=== PATIENT | female | born 1940 | race Caucasian/White ===

== ENCOUNTER 2017-02-06 09:38 | Emergency (ER) | payer OTHER ==
[2017-02-06] MEDS ORDERED: AMPICILLIN/SULBACTAM 3 GM/10 ML VIAL ONE ×2 (10:47→17:54)
[2017-02-06] MEDS ORDERED: NORMAL SALINE 100 ML IV ONE ×2 (10:48→17:58)
[2017-02-06] MEDS ORDERED: WATER FOR INJECTION 10 ML ONE ×2 (10:50→17:54)
--- NOTE | 2017-02-06 11:32 | ER NURSING DOCUMENTATION ---
Nurse's Notes [facility] Name:Carleen Allen Age:76 yrs Sex:Female :1940 Arrival Date:02/06/2017 Time:09:38 Bed1 Private MD: Diagnosis:Cellulitis of Hand-: Left;Cat Bite Presentation: 02/06 09:59 Notified ED Physician of patient's arrival and CC Dr. Lin notified. cb 10:02 Presenting complaint: Patient states: cat bite. Transition of care: Home. cb 10:02 Method Of Arrival: Private Vehicle cb 10: Acuity: SASHA 3 cb Triage Assessment: 10:07 Bite description: bite sustained to dorsum of left hand by a cat, animal information: cb vaccination(s) is current, bite by own cat yesterday. Cat is UTD on his shots. Compartment Syndrome symptoms: Unable to determine. General: Appears in no apparent distress, well groomed, Behavior is cooperative. Pain: Complains of pain in dorsum of left hand Pain currently is 6 out of 10 on a pain scale. Quality of pain is described as aching. EENT: No deficits noted. Neuro: Level of Consciousness is awake, alert, Oriented to person, place, time, event. Cardiovascular: Pulses are 2+ in left radial artery. Respiratory: Airway is patent Trachea midline Respiratory effort is even, unlabored, Respiratory pattern is regular, symmetrical. GI: Reports tolerance of fluids, tolerance of food. : No deficits noted. Derm: Skin skin swollen and red with two puncture wounds. Musculoskeletal: No deficits noted. Injury Description: Bite sustained to dorsum of left hand caused by a cat, is from animal, was sustained 1 day ago. Historical: - Allergies: No known drug Allergies; - Home Meds: 1. Atenolol Oral 2. Synthroid Oral - PMHx: HYPERTENSION; HYPOTHYROIDISM; - PSHx: Tonsillectomy; Hysterectomy; - Tetanus: < 10 years. - Ebola Screening: : Patient negative for fever greater than or equal to 101.5 degrees Fahrenheit, and additional compatible Ebola Virus Disease symptoms. Patient denies exposure to infectious person. Patient denies travel to an Ebola-affected area in the 21 days before illness onset. No symptoms or risks identified at this time. . - Immunization history: Flu Vaccine < 1 year. - Social history: Smoking status: Patient states was never smoker of tobacco. Screenin:23 Infectious Disease Risk None. Abuse screen: Denies threats or abuse. Denies injuries cb from another. Nutritional screening: No deficits noted. Assessment: 11:30 Derm: Skin is pink, Skin temperature is warm Reports cat bite yesterday. cb Vital Signs: 10:06 BP 136 / 68; Pulse 70; Resp 18; Temp 97.2(TE); Pulse Ox 94% on R/A; Weight 52.16 kg; cb Height 5 ft. 0 in. (152.40 cm); Pain 6/10; 11:30 Pulse 74; Pulse Ox 99% on R/A; cb 10:06 Body Mass Index 22.46 (52.16 kg, 152.40 cm) cb ED Course: 09:40 Patient arrived in ED. lr3 10:02 Justine Landon, FAUSTO is Primary Nurse. cb 10:03 Triage completed. cb 10:15 Wound care to cat bite located on dorsum of left hand was cleaned with Hibiclens. cb 10:19 Casey Lin MD is Attending Physician. cd 10:23 Valuables Remains with patient Patient has correct armband on for positive cb identification. Bed in low position. Call light in reach. Adult w/ patient. 10:30 Inserted peripheral IV: 20 gauge in right antecubital area. cb 10:45 Diet: Patient given juice. cb 11:25 Wound care to cat bite located on left hand was dressed with 4X4s, Kerlix, Patient cb tolerated well. Administered Medications: 10:43 Drug: Unasyn 3 grams; Route: IVPB; Site: right antecubital; cb 11:25 Follow up: Response: No adverse reaction; IV Status: Completed infusion; IV Intake: cb 100ml Intake: 11:25 IV: 100ml; Total: 100ml. cb Outcome: 10:22 Discharge ordered by . cd 11:30 Discharged to home ambulatory, with friend. cb 11:30 Condition: stable 11:30 Discharge instructions given to patient, Instructed on discharge instructions, follow up and referral plans. Demonstrated understanding of instructions, medications, NSS lock left in plae and flushed wan wrapped with Diana 11:31 Patient left the ED. cb 02/07 08:07 Discharge F/U Call: Spoke with: patient. Did your discharge instructions answer all lp of your questions? yes What is the one thing you feel we could do to improve? Patient's answer: feeling better Further F/U necessary? None needed Signatures: Justine Landon RN RN cb Pavlish, Lena, RN RN lp Daley, Chris, MD MD cd Roach, Lelia lr3
--- NOTE | 2017-02-06 11:32 | ER PHYSICIAN DOCUMENTATION ---
Physician Documentation [facility] Name:Carleen Allen Age:76 yrs Sex:Female :1940 Arrival Date:02/06/2017 Time:09:38 Bed1 Private MD: Casey Lewis Disposition: 02/06/17 10:22 Discharged to Home/Self Care. Impression: Cellulitis of Hand - : Left, Cat Bite. - Condition is Good. - Discharge Instructions: ANIMAL BITE, General, CELLULITIS. - Medical Reconciliation form form. - Follow up: Emergency Department; When: at 5:30 PM. For recheck and possible IV antibiotics.; Reason: Recheck today's complaints, Continuance of care. - Problem is new. - Symptoms are unchanged. - Notes: Take Tylenol 325mg by mouth every 6 hours for pain. Elevate your hand above your heart all day today. Return to the ER for recheck and possible IV Antibiotics at 5:00 PM today. HPI: 02/06 09:45 This 76 yrs old Female presents to ER via Private Vehicle with complaints of cd Animal Bite. 09:45 The patient was bitten on the dorsum of left hand, by a cat, for an unknown reason, at home. Onset: The symptom(s)/episode began/occurred acutely, yesterday. Animal information: The animal was reported to appear healthy. Animal's vaccinations are up to date. The animal is known and can be quarantined. Infection risk factors: bite to the hand, The bite resulted in a deep puncture wound. Secondary to the bite the patient reports erythema, swelling, tenderness. Associated signs and symptoms: Pertinent positives: erythema at site, swelling at site, tenderness, Pertinent negatives: bony tenderness, fever, fluctuance, numbness distal to wound, no pain or limitation of tendon motion. Severity of symptoms: At their worst the symptoms were moderate, in the emergency department the symptoms are unchanged. Historical: - Allergies: No known drug Allergies; - Home Meds: 1. Atenolol Oral 2. Synthroid Oral - PMHx: HYPERTENSION; HYPOTHYROIDISM; - PSHx: Tonsillectomy; Hysterectomy; - Tetanus: < 10 years. - Ebola Screening: : Patient negative for fever greater than or equal to 101.5 degrees Fahrenheit, and additional compatible Ebola Virus Disease symptoms. Patient denies exposure to infectious person. Patient denies travel to an Ebola-affected area in the 21 days before illness onset. No symptoms or risks identified at this time. . - Immunization history: Flu Vaccine < 1 year. - Social history: Smoking status: Patient states was never smoker of tobacco. ROS: 10:10 Constitutional: Negative for chills, fever. cd 10:10 MS/extremity: Negative for decreased range of motion, tingling. 10:10 Skin: Positive for erythema, swelling, of the dorsum of left hand. 10:10 All other systems are negative. Exam: 10:10 Constitutional: The patient appears alert, awake, non-diaphoretic, non-toxic, anxious. cd 10:10 Musculoskeletal/extremity: ROM: no acute changes, Circulation is intact in all extremities. Sensation intact. Tendon exam: specific tendon testing normal through active and passive range of motion No signs of Tenosynovitis. 10:10 Skin: Appearance: normal except for affected area, cellulitis, that is moderate, confluent, injury, bite(s), deep, of the dorsum of left hand, puncture(s), that are deep. Vital Signs: 10:06 BP 136 / 68; Pulse 70; Resp 18; Temp 97.2(TE); Pulse Ox 94% on R/A; Weight 52.16 kg; cb Height 5 ft. 0 in. (152.40 cm); Pain 6/10; 11:30 Pulse 74; Pulse Ox 99% on R/A; cb 10:06 Body Mass Index 22.46 (52.16 kg, 152.40 cm) cb MDM: 09:45 Data interpreted: Pulse oximetry: on room air is 99 %. Interpretation: normal. cd 09:55 Differential diagnosis: tendon injury, cellulitis, P. multocida infection from Cat cd Bite. Infection risk factors: bite to the hand. Rabies Status: Rabies immunization is not indicated. 10:15 Data reviewed: vital signs, nurses notes, old medical records, and as a result, I will cd discharge patient, administer antibiotics Unasyn, and have the patient return every 6 hours for Unasyn 1.5 grams IVPB.. 10:15 Counseling: I had a detailed discussion with the patient and/or guardian regarding: the cd historical points, exam findings, and any diagnostic results supporting the discharge/admit diagnosis, the need for outpatient follow up, for a recheck, of today's symptoms, and IV Unasyn every 6 hours for three more doses. 10:19 Patient medically screened. cd 02/06 10:20 Order name: Iv Saline Lock; Complete Time: 10:34 cd Dispensed Medications: 10:43 Drug: Unasyn 3 grams; Route: IVPB; Site: right antecubital; cb 11:25 Follow up: Response: No adverse reaction; IV Status: Completed infusion; IV Intake: cb 100ml Signatures: Justine Landon RN RN Casey Pena MD MD cd
== END 2017-02-06 11:32 | disposition home or self-care (01) ==
LOC: ER 09:38
DX: S61.452A Open bite of left hand, initial encounter (principal); L03.114 Cellulitis of left upper limb; W55.01XA Bitten by cat, initial encounter; Y92.019 Unspecified place in single-family (private) house as the place of occurrence of the external cause; I10 Essential (primary) hypertension; Z79.899 Other long term (current) drug therapy
CPT/HCPCS: 96365; 99284; J0295

== ENCOUNTER 2017-02-06 17:24 | Emergency (ER) | payer OTHER ==
--- NOTE | 2017-02-06 18:45 | ER NURSING DOCUMENTATION ---
Nurse's Notes [facility] Name:Carleen Allen Age:76 yrs Sex:Female :1940 Arrival Date:02/06/2017 Time:17:24 Bed1 Private MD:Luiza Krishnan Diagnosis:Cellulitis of Hand;Animal Bite on Hand Presentation: 02/06 17:28 Presenting complaint: Patient states: I am back for a recheck of my cat bite. cb Transition of care: Home. 17:28 Method Of Arrival: Private Vehicle cb 17:28 Acuity: SASHA 4 cb Triage Assessment: 17:28 General: Appears in no apparent distress, well groomed, Behavior is cooperative. cb 17:28 Pain: Complains of pain in dorsum of left hand Pain currently is 3 out of 10 on a pain cb scale. EENT: No deficits noted. Neuro: Level of Consciousness is awake, alert, Oriented to person, place, time, event. Cardiovascular: Pulses are 2+ in left radial artery. Respiratory: Airway is patent Trachea midline Respiratory effort is even, unlabored, Respiratory pattern is regular, symmetrical. GI: Reports tolerance of fluids, tolerance of food. : No deficits noted. Derm: Skin cat bite to L hand , erythema has improved but fingers and knuckles are still swollen. Reports keeping hand elevated while @ home. Musculoskeletal: No deficits noted. Injury Description: Bite sustained to dorsum of left hand caused by a cat, is infected, was sustained 1 day ago. Historical: - Allergies: No known drug Allergies; - Home Meds: 1. Atenolol Oral 2. Synthroid Oral - PMHx: HYPERTENSION; HYPOTHYROIDISM; Cellulitis of Hand - : Left (February 06, 2017); Cat Bite (February 06, 2017); - PSHx: TONSILLECTOMY; HYSTERECTOMY; - Tetanus: < 10 years. - Ebola Screening: : Patient negative for fever greater than or equal to 101.5 degrees Fahrenheit, and additional compatible Ebola Virus Disease symptoms. Patient denies exposure to infectious person. Patient denies travel to an Ebola-affected area in the 21 days before illness onset. No symptoms or risks identified at this time. . - Immunization history: Flu Vaccine < 1 year. - Social history: Smoking status: Patient states was never smoker of tobacco. Screenin:23 Infectious Disease Risk None. Infectious Disease Risk None. Abuse screen: Denies cb threats or abuse. Denies injuries from another. Nutritional screening: No deficits noted. Vital Signs: 17:53 BP 126 / 69; Pulse 76; Resp 16; Temp 99.1; Pulse Ox 95% ; Weight 47.17 kg; Height 4 ft. cb 11 in. (149.86 cm); Pain 3/10; 05 12:25 BP 104 / 68; Pulse 82; Resp 16; Temp 98.3(O); Pulse Ox 95% on R/A; lp 02/06 17:53 Body Mass Index 21.01 (47.17 kg, 149.86 cm) cb ED Course: 02/06 17:28 Patient arrived in ED. ma1 17:28 Luiza Krishnan DO is Private Physician. md1 17:28 Justine Landon, FAUSTO is Primary Nurse. cb 17:29 Triage completed. cb 17:57 IV is intact, Flushed right saline lock. cb 18:23 Wound care to cat bite located on left hand was dressed with 4X4s, Kerlix, Patient cb tolerated well. 18:23 Valuables Remains with patient Patient has correct armband on for positive cb identification. Bed in low position. Call light in reach. Adult w/ patient. 18:25 Casey Lin MD is Attending Physician. cd 18:45 IV is intact, Flushed right saline lock wrapped with Diana. cb Administered Medications: 17:59 Drug: NS 0.9% 100 ml, Unasyn 1.5 grams; Route: IVPB; Site: right antecubital; cb 18:25 Follow up: IV Status: Completed infusion; IV Intake: 100ml cb 18:25 Follow up: Response: No adverse reaction cb Intake: 18:25 IV: 100ml; Total: 100ml. cb Outcome: 18:29 Discharge ordered by . cd 18:43 Discharged to home ambulatory. cb 18:43 Condition: stable 18:43 Discharge instructions given to patient, friend, Instructed on discharge instructions, follow up and referral plans. Demonstrated understanding of instructions, medications. 18:43 Recheck visit only Wound recheck 18:44 Patient left the ED. [facility] 02/07 08:25 Discharge F/U Call: Spoke with: patient. lp 08:25 Discharge F/U Call: Did your discharge instructions answer all of your questions? yes lp Have you made a f/u appointment? yes Overall Care on a scale of 1-10 with 10 being the best care, you rate our care as: the rating of 10. Signatures: Justine Landon, RN RN Alecia Taylor RN RN nh1 [place] RN RN lp Casey Lin MD MD cd Addison, Melissa [facility]
--- NOTE | 2017-02-06 18:45 | ER PHYSICIAN DOCUMENTATION ---
Physician Documentation [facility] Name:Carleen Allen Age:76 yrs Sex:Female :1940 Arrival Date:02/06/2017 Time:17:24 Bed1 Private MD:Luiza Krishnan ED, Chris Disposition: 02/06/17 18:29 Discharged to Home/Self Care. Impression: Cellulitis of Hand, Animal Bite on Hand. - Condition is Good. - Discharge Instructions: ANIMAL BITE, General, CELLULITIS. - Medical Reconciliation form form. - Follow up: Emergency Department; When: at 11:00 PM tonight....then 7:00 AM tomorrow morning; Reason: Recheck today's complaints, Continuance of care. - Problem is an ongoing problem. - Symptoms have improved. - Notes: Return to the ER at 2300 PM tonight and 7:00 AM tomorrow morning for your Unasyn IV Dose. Keep you left hand elevated above your heart as much as possible. Historical: - Allergies: No known drug Allergies; - Home Meds: 1. Atenolol Oral 2. Synthroid Oral - PMHx: HYPERTENSION; HYPOTHYROIDISM; Cellulitis of Hand - : Left (February 06, 2017); Cat Bite (February 06, 2017); - PSHx: TONSILLECTOMY; HYSTERECTOMY; - Tetanus: < 10 years. - Ebola Screening: : Patient negative for fever greater than or equal to 101.5 degrees Fahrenheit, and additional compatible Ebola Virus Disease symptoms. Patient denies exposure to infectious person. Patient denies travel to an Ebola-affected area in the 21 days before illness onset. No symptoms or risks identified at this time. . - Immunization history: Flu Vaccine < 1 year. - Social history: Smoking status: Patient states was never smoker of tobacco. Vital Signs: 02/06 17:53 BP 126 / 69; Pulse 76; Resp 16; Temp 99.1; Pulse Ox 95% ; Weight 47.17 kg; Height 4 ft. cb 11 in. (149.86 cm); Pain 12/08; 02/07 12:25 BP 104 / 68; Pulse 82; Resp 16; Temp 98.3(O); Pulse Ox 95% on R/A; lp 02/06 17:53 Body Mass Index 21.01 (47.17 kg, 149.86 cm) cb MDM: 02/06 18:25 Patient medically screened. cd Dispensed Medications: 17:59 Drug: NS 0.9% 100 ml, Unasyn 1.5 grams; Route: IVPB; Site: right antecubital; cb 18:25 Follow up: IV Status: Completed infusion; IV Intake: 100ml cb 18:25 Follow up: Response: No adverse reaction cb Signatures: Justine Landon RN RN Alecia Taylor RN RN sc1 Casey Lin MD MD cd
[2017-02-07] MEDS ORDERED: AMPICILLIN/SULBACTAM 1.5 GM/10 ML VIAL IV ONE (06:54)
[2017-02-07] MEDS ORDERED: NORMAL SALINE MINI-BAG+ 100 ML IV ONE (06:54)
== END 2017-02-06 18:45 | disposition home or self-care (01) ==
LOC: ER 17:24
DX: L03.114 Cellulitis of left upper limb (principal); S61.452D Open bite of left hand, subsequent encounter; W55.01XD Bitten by cat, subsequent encounter
CPT/HCPCS: 96365; 99281; J0295

== ENCOUNTER 2017-02-06 22:48 | Emergency (ER) | payer OTHER ==
[2017-02-06] MEDS ORDERED: NORMAL SALINE ADDVANTAGE 100 ML IV ONE (23:06)
[2017-02-06] MEDS ORDERED: AMPICILLIN/SULBACTAM 1.5 GM/10 ML VIAL IV ONE (23:06)
--- NOTE | 2017-02-06 23:37 | ER NURSING DOCUMENTATION ---
Nurse's Notes [facility] Name:Carleen Allen Age:76 yrs Sex:Female :1940 Arrival Date:02/06/2017 Time:22:48 Bed1 Private MD:Luiza Krishnan Diagnosis:Cellulitis Presentation: 02/06 22:53 Acuity: SASHA 5 rh 23:02 Presenting complaint: Patient states: Pt here for IV antibiotics per dr. Lin. No rh spreading of redness on the left hand, no pain or fever. Transition of care: Home. 23:02 Method Of Arrival: Walk In Triage Assessment: 23:03 General: Appears in no apparent distress, Behavior is cooperative. General: Denies rh fever, chills. Pain: Denies pain. Derm: Skin is intact, is healthy with good turgor, Skin is pink, warm & dry. Pt has bandage on the left hand and no spreading redness or pain. Historical: - Allergies: No known drug Allergies; - Home Meds: 1. Atenolol Oral 2. Synthroid Oral - PMHx: HYPERTENSION; HYPOTHYROIDISM; Cellulitis of Hand - : Left (February 06, 2017); Cat Bite (February 06, 2017); - PSHx: TONSILLECTOMY; HYSTERECTOMY; - Tetanus: < 10 years. - Ebola Screening: : Patient negative for fever greater than or equal to 101.5 degrees Fahrenheit, and additional compatible Ebola Virus Disease symptoms. - Immunization history: Flu Vaccine < 1 year. - Social history: Smoking status: unknown if patient ever smoked tobacco. Screenin:04 Infectious Disease Risk None. Abuse screen: Denies threats or abuse. Denies injuries rh from another. Nutritional screening: No deficits noted. Assessment: 23:04 See Triage Assessment done by same RN. rh Vital Signs: 23:03 BP 158 / 57; Pulse 70; Resp 16; Temp 98.4(O); Pulse Ox 94% on R/A; Weight 48.53 kg; rh Height 5 ft. 0 in. (152.40 cm); Pain 0/10; 23:30 BP 162 / 84; Pulse 77; Pulse Ox 97% on 2 lpm NC; em1 23:36 BP 130 / 83; Pulse 74; Resp 16; Pulse Ox 95% on R/A; rh 23:03 Body Mass Index 20.90 (48.53 kg, 152.40 cm) rh ED Course: 22:52 Patient arrived in ED. em2 22:53 Luiza Krishnan DO is Private Physician. em2 22:53 Ambika Garcia is Primary Nurse. rh 22:53 Triage completed. rh 23:04 Valuables Remains with patient Patient has correct armband on for positive rh identification. Call light in reach. Side rails up X 1. 23:04 Maintain field IV. Dressing intact. Site clean & dry. Gauge & site: 20G in the right FA.rh 23:32 Geronimo Martinez MD is Attending Physician. tl1 Administered Medications: 23:00 Drug: Unasyn 1.5 grams; Route: IVPB; Site: right forearm; rh 23:35 Follow up: IV Status: Completed infusion; IV Intake: 100ml rh Intake: 23:35 IV: 100ml; Total: 100ml. rh Outcome: 23:35 Discharged to home ambulatory, with friend. rh 23:35 Condition: improved 23:35 Discharge instructions given to patient, friend, Instructed on discharge instructions, follow up and referral plans. 23:35 Discharge ordered by . rh 23:35 No charge visit due to Outpatient Procedure rh 23:36 Patient left the ED. Signatures: Nicole-Lacy king-tech em1 Nicole-regLacy-mae em2 Geronimo Martinez MD MD tl1 Ambika Garcia rh
--- NOTE | 2017-02-06 23:37 | ER PHYSICIAN DOCUMENTATION ---
Physician Documentation [facility] Name:Carleen Allen Age:76 yrs Sex:Female :1940 Arrival Date:02/06/2017 Time:22:48 Bed1 Private MD:Luiza Krishnan ED, Tom Disposition: 02/06 23:33 Chart complete. tl1 Disposition: 02/06/17 23:35 Discharged to Home/Self Care. Impression: Cellulitis. - Condition is Good. - Medical Reconciliation form form. - Follow up: Emergency Department; When: Tomorrow; Reason: Continuance of care. - Symptoms are unchanged. HPI: 23:32 This 76 yrs old Female presents to ER via Walk In with complaints of Heree tl1 for IV ANtibiotics. Historical: - Allergies: No known drug Allergies; - Home Meds: 1. Atenolol Oral 2. Synthroid Oral - PMHx: HYPERTENSION; HYPOTHYROIDISM; Cellulitis of Hand - : Left (February 06, 2017); Cat Bite (February 06, 2017); - PSHx: TONSILLECTOMY; HYSTERECTOMY; - Tetanus: < 10 years. - Ebola Screening: : Patient negative for fever greater than or equal to 101.5 degrees Fahrenheit, and additional compatible Ebola Virus Disease symptoms. - Immunization history: Flu Vaccine < 1 year. - Social history: Smoking status: unknown if patient ever smoked tobacco. Vital Signs: 23:03 BP 158 / 57; Pulse 70; Resp 16; Temp 98.4(O); Pulse Ox 94% on R/A; Weight 48.53 kg; rh Height 5 ft. 0 in. (152.40 cm); Pain 0/10; 23:30 BP 162 / 84; Pulse 77; Pulse Ox 97% on 2 lpm NC; em1 23:36 BP 130 / 83; Pulse 74; Resp 16; Pulse Ox 95% on R/A; rh 23:03 Body Mass Index 20.90 (48.53 kg, 152.40 cm) rh MDM: 23:32 Patient medically screened. tl1 Dispensed Medications: 23:00 Drug: Unasyn 1.5 grams; Route: IVPB; Site: right forearm; rh 23:35 Follow up: IV Status: Completed infusion; IV Intake: 100ml rh Signatures: Michelle, Geronimo, MD MD tl1 Hofsess, Ambika rh
== END 2017-02-06 23:37 | disposition home or self-care (01) ==
LOC: ER 22:48
DX: L03.114 Cellulitis of left upper limb (principal); S61.452D Open bite of left hand, subsequent encounter; W55.01XD Bitten by cat, subsequent encounter
CPT/HCPCS: 96365; J0295

== ENCOUNTER 2017-02-07 06:42 | Emergency (ER) | payer OTHER ==
--- NOTE | 2017-02-07 07:35 | ER NURSING DOCUMENTATION ---
Nurse's Notes [facility] Name:Carleen Allen Age:76 yrs Sex:Female :1940 Arrival Date:02/07/2017 Time:06:42 Bed1 Private MD:Luiza Krishnan Diagnosis:Cellulitis Presentation: 02/07 06:55 Presenting complaint: Patient states: Outpatient IV ABX. tg 06:55 Acuity: ASSHA 4 tg 06:55 Method Of Arrival: Private Vehicle tg 07:32 Transition of care: Home. lp Triage Assessment: 06:55 General: Appears in no apparent distress, Behavior is cooperative. Pain: Denies pain. tg Derm: Skin is pink, warm & dry. Historical: - Allergies: No known drug Allergies; - Tetanus: < 10 years. - Ebola Screening: : Patient negative for fever greater than or equal to 101.5 degrees Fahrenheit, and additional compatible Ebola Virus Disease symptoms. Patient denies exposure to infectious person. Patient denies travel to an Ebola-affected area in the 21 days before illness onset. . - Immunization history: Pneumococcal vaccine is up to date. - Social history: Smoking status: unknown if patient ever smoked tobacco. Screenin:56 Infectious Disease Risk Unable to Obtain. Abuse screen: Denies threats or abuse. Denies tg injuries from another. Nutritional screening: No deficits noted. Vital Signs: 06:55 BP 151 / 70; Pulse 78; Resp 14; Temp 98.4(O); Pulse Ox 95% on R/A; Pain 0/10; tg 12:26 BP 104 / 68; Pulse 82; Resp 16; Temp 98.3; Pulse Ox 95% on R/A; lp ED Course: 06:43 Patient arrived in ED. em2 06:43 Luiza Krishnan DO is Private Physician. em2 06:55 Migue Hernandez RN is Primary Nurse. tg 06:55 Triage completed. tg 06:56 Valuables Remains with patient Patient has correct armband on for positive tg identification. Bed in low position. Call light in reach. Side rails up X 1. 06:56 IV 20g RAC flushes easily. Placed yesterday. tg 07:34 Geronimo Martinez MD is Attending Physician. lp Administered Medications: 06:52 Drug: NS 0.9% 100 ml, Unasyn 1.5 grams; Route: IVPB; Rate: 200 ml/hr; Infused Over: 30 tg mins; Site: right antecubital; Delivery: Pump; :28 Follow up: Response: No adverse reaction; No change in condition; IV Status: Completed lp infusion; IV Intake: 100ml Intake: : IV: 100ml; Total: 100ml. lp Outcome: 07:06 No charge visit due to Outpatient Procedure tg 07:31 Discharged to home ambulatory. lp 07:31 Condition: good 07:31 Instructed on discharge instructions, follow up and referral plans. medication usage, Leaving IV in for IV atb this afternoon 07:33 Discharge ordered by MD. lp 07:34 Patient left the ED. lp Signatures: Migue Hernandez RN RN [place] RN RN Nicole-reg, Lacy-mae em2
--- NOTE | 2017-02-09 07:34 | ER PHYSICIAN DOCUMENTATION ---
Physician Documentation [facility] Name:Carleen Allen Age:76 yrs Sex:Female :1940 Arrival Date:02/07/2017 Time:06:42 Bed1 Private MD:Luiza Krishnan ED, Tom Disposition: 02/07 17:48 Chart complete. tl1 Disposition: 02/07/17 07:33 Discharged to Home/Self Care. Impression: Cellulitis. - Condition is Good. - Medical Reconciliation form form. - Follow up: Emergency Department; When: Today; Reason: Continuance of care. HPI: 07:00 This 76 yrs old Female presents to ER via Private Vehicle with complaints of tl1 CELLULITIS. SHE IS HERE FOR IV UNASYN. 07:00 Patient presents to ED for recheck of:. Patient presents to ED for recheck of: tl1 cellulitis. SHE WAS NOT SEEN BY ME; SHE WAS HERE ONLY FOR IV ANTIBIOTICS. SHE WILL RETURN THIS AFTERNOON FOR A RECHECK BY ME.. Historical: - Allergies: No known drug Allergies; - Tetanus: < 10 years. - Ebola Screening: : Patient negative for fever greater than or equal to 101.5 degrees Fahrenheit, and additional compatible Ebola Virus Disease symptoms. Patient denies exposure to infectious person. Patient denies travel to an Ebola-affected area in the 21 days before illness onset. . - Immunization history: Pneumococcal vaccine is up to date. - Social history: Smoking status: unknown if patient ever smoked tobacco. Vital Signs: 06:55 BP 151 / 70; Pulse 78; Resp 14; Temp 98.4(O); Pulse Ox 95% on R/A; Pain 0/10; tg 12:26 BP 104 / 68; Pulse 82; Resp 16; Temp 98.3; Pulse Ox 95% on R/A; lp MDM: 17:46 Patient medically screened. tl1 Dispensed Medications: 06:52 Drug: NS 0.9% 100 ml, Unasyn 1.5 grams; Route: IVPB; Rate: 200 ml/hr; Infused Over: 30 tg mins; Site: right antecubital; Delivery: Pump; 07:28 Follow up: Response: No adverse reaction; No change in condition; IV Status: Completed lp infusion; IV Intake: 100ml Signatures: Migue Hernandez RN RN Rose Wheeler, RN RN Geronimo Quintana, MD tl1
== END 2017-02-07 07:35 | disposition home or self-care (01) ==
LOC: ER 06:42
DX: L03.114 Cellulitis of left upper limb (principal); S61.452D Open bite of left hand, subsequent encounter; W55.01XD Bitten by cat, subsequent encounter
CPT/HCPCS: 96365

== ENCOUNTER 2017-02-07 12:15 | Emergency (ER) | payer OTHER ==
--- NOTE | 2017-02-07 12:39 | ER NURSING DOCUMENTATION ---
Nurse's Notes [facility] Name:Carleen Allen Age:76 yrs Sex:Female :1940 Arrival Date:02/07/2017 Time:12:15 Bed2 Private MD: Diagnosis:Cellulitis of Hand Presentation: 02/07 12:18 Presenting complaint: Patient states: wound re-check. Transition of care: Home. lp 12:18 Acuity: SASHA 4 lp 12:18 Method Of Arrival: Private Vehicle lp Triage Assessment: 12:19 General: Appears in no apparent distress, Behavior is appropriate for age. Pain: Denies lp pain. Historical: - Allergies: No known drug Allergies; - PMHx: Cellulitis (February 07, 2017); - Tetanus: < 10 years. - Ebola Screening: : Patient negative for fever greater than or equal to 101.5 degrees Fahrenheit, and additional compatible Ebola Virus Disease symptoms. Patient denies exposure to infectious person. Patient denies travel to an Ebola-affected area in the 21 days before illness onset. . - Immunization history: Pneumococcal vaccine is up to date, Flu Vaccine < 1 year. - Social history: Smoking status: unknown if patient ever smoked tobacco. Screenin:19 Infectious Disease Risk None. Abuse screen: Denies threats or abuse. Denies injuries lp from another. Nutritional screening: No deficits noted. Assessment: 12:19 See Triage Assessment done by same RN. lp Vital Signs: 12:26 BP 104 / 68; Pulse 82; Resp 16; Temp 98.3(O); Pulse Ox 95% on R/A; lp ED Course: 12:16 Patient arrived in ED. nighat 12:17 Geronimo Martinez MD is Attending Physician. tl1 12:18 Rose Park, FAUSTO is Primary Nurse. lp 12:18 Triage completed. lp 12:[address] Martinez notified. lp 12:19 Valuables Remains with patient. lp 12:19 Discontinued IV bleeding controlled, Left IV in from AM ATB visit DC'd at this time. lp 12:20 Luiza Krishnan DO is Referral Physician. tl1 Administered Medications: No medications were administered Outcome: 12:20 Discharge ordered by MD. tl1 12:26 Discharged to home ambulatory. lp 12:26 Condition: good 12:26 Instructed on discharge instructions, follow up and referral plans. medication usage. 12:38 Patient left the ED. lp Signatures: Rose Park RN RN Monae Quintanilla, Geronimo Ibanez jd, MD MD tl1
--- NOTE | 2017-02-07 12:39 | ER PHYSICIAN DOCUMENTATION ---
Physician Documentation [facility] Name:Carleen Allen Age:76 yrs Sex:Female :1940 Arrival Date:02/07/2017 Time:12:15 Bed2 Private MD: Geronimo Pro Disposition: 02/07 18:07 Chart complete. tl1 Disposition: 02/07/17 12:20 Discharged to Home/Self Care. Impression: Cellulitis of Hand. - Condition is Good. - Discharge Instructions: CELLULITIS. - Prescriptions for Augmentin 875- 125 mg Oral Tablet - take 1 tablet by ORAL route every 12 hours for 10 days; 20 tablet. - Medical Reconciliation form form. - Follow up: Luiza Krishnan DO; When: Tomorrow; Reason: Recheck today's complaints, Continuance of care. - Problem is new. - Symptoms have improved. HPI: 12:17 This 76 yrs old Female presents to ER with complaints of left hand redness tl1 and swelling. 12:17 The patient has not experienced similar symptoms in the past. The patient has been tl1 recently seen at the [facility] Emergency Department, today. She has an infected cat bite of her left hand and has now had 24 hours of IV unasyn. She is clearly getting better, with decreased swelling, pain, redness and increased ROM. She is here to see if it would be appropriate to switch to oral Augmentin.. Historical: - Allergies: No known drug Allergies; - PMHx: Cellulitis (February 07, 2017); - Tetanus: < 10 years. - Ebola Screening: : Patient negative for fever greater than or equal to 101.5 degrees Fahrenheit, and additional compatible Ebola Virus Disease symptoms. Patient denies exposure to infectious person. Patient denies travel to an Ebola-affected area in the 21 days before illness onset. . - Immunization history: Pneumococcal vaccine is up to date, Flu Vaccine < 1 year. - Social history: Smoking status: unknown if patient ever smoked tobacco. ROS: 12:20 MS/extremity: Positive for erythema, pain, swelling, tenderness. tl1 12:20 All other systems are negative. Exam: 12:20 Constitutional: This is a well developed, well nourished patient who is awake, alert, tl1 and in no acute distress. 12:20 Head/Face: Normocephalic, atraumatic. tl1 12:20 Cardiovascular: Rate: normal. 12:20 Respiratory: Respirations: normal. 12:20 Musculoskeletal/extremity: Extremities: grossly normal except: noted in the left hand: Dorsal left hand is less red and swollen than last night, less tender with a better ROM. 12:20 Skin: cellulitis, see above. Vital Signs: 12:26 BP 104 / 68; Pulse 82; Resp 16; Temp 98.3(O); Pulse Ox 95% on R/A; lp MDM: 12:20 Patient medically screened. tl1 12:30 Data reviewed: vital signs, nurses notes, old medical records, and as a result, I will tl1 discharge patient, and post exchange manager to PO Augmentin.. Response to treatment: the patient's symptoms have markedly improved after treatment, and as a result, I will discharge patient. Dispensed Medications: No medications were administered Signatures: Rose Park RN RN lp Leigh, Tom, MD MD tl1
== END 2017-02-07 12:39 | disposition home or self-care (01) ==
LOC: ER 12:15
DX: L03.114 Cellulitis of left upper limb (principal); S61.452D Open bite of left hand, subsequent encounter; W55.01XD Bitten by cat, subsequent encounter
CPT/HCPCS: 99281

== ENCOUNTER 2017-02-08 15:10 | Observation (INO) | payer OTHER ==
[2017-02-08] MEDS ORDERED: HOME MEDICATION LIST NEEDED 1 EA EACH MC ONE (15:30)
[2017-02-08] MEDS ORDERED: POLYETHYLENE GLYCOL 3350 17 GM POWD.PACK PO PRN (15:30)
[2017-02-08] MEDS ORDERED: MAG-AL PLUS XS SUSP 30 ML UDC PO PRN (15:30)
[2017-02-08] MEDS ORDERED: ACETAMINOPHEN 325 MG TABLET PO PRN (15:30)
[2017-02-08] MEDS ORDERED: NORMAL SALINE 500 ML IV ONE (16:48)
[2017-02-08] MEDS ORDERED: NORMAL SALINE 250 ML IV ONE (17:17)
[2017-02-08] MEDS: AMPICILLIN/SULBACTAM 1.5 GM in NORMAL SALINE MINI-BAG+ 100 ML IV SCH (17:22)
[2017-02-08 19:04] LABS: BASOPHIL# 0.1 X 10^3uL (0.0-0.1); BASOPHILS 0.9 % (0.0-2.0); EOSINOPHILS 1.1 % (0.0-6.0); EOSINOPHILS# 0.1 X 10^3uL (0.0-0.4); HEMATOCRIT 34.8 % (36.0-48.0); HEMOGLOBIN 11.9 g/dL (12.0-16.0); LYMPHOCYTES 14.4 % (20.0-40.0); LYMPHOCYTES# 1.5 X 10^3uL (0.8-3.8); MEAN CELL VOLUME 92.5 fL (80.0-100.0); MEAN CORPUSCULAR HEMOGLOBIN 31.5 pg (29.0-35.0); MEAN PLATELET VOLUME 7.8 fL (7.4-10.4); MONOCYTES 7.8 % (2.0-10.0); MONOCYTES# 0.8 X 10^3uL (0.2-1.0); NEUTROPHILS 75.8 % (54.0-75.0); NEUTROPHILS# 7.7 X 10^3uL (2.6-6.7); PLATELET COUNT 369 X 10^3uL (130-440); RED BLOOD COUNT 3.77 X 10^6uL (4.20-6.10); RED CELL DISTRIBUTION WIDTH 13.4 % (11.5-14.5); WHITE BLOOD COUNT 10.2 X 10^3uL (3.9-10.7)
[2017-02-08 19:16] LABS: BLOOD UREA NITROGEN 15 mg/dL (7-17); C-REACTIVE PROTEIN 80.1 mg/L (<10.0); CALCIUM 8.8 mg/dL (8.4-10.2); CHLORIDE 104 mmol/L (98-107); CREATININE 0.6 mg/dL (0.5-1.0); EST GLOMERULAR FILTRATION RATE > 60 mL/min; GLUCOSE 116 mg/dL (70-100); POTASSIUM 3.5 mmol/L (3.5-5.1); SODIUM 141 mmol/L (137-145)
[2017-02-08 19:39] LABS: ERYTHROCYTE SEDIMENTATION RATE 52 MM/HR (0-20)
[2017-02-08] MEDS ORDERED: POTASSIUM CHLORIDE/NS 1,000 ML IV SCH (20:00)
[2017-02-09] MEDS: AMPICILLIN/SULBACTAM 1.5 GM in NORMAL SALINE MINI-BAG+ 100 ML IV SCH ×5 (00:01→19:37)
[2017-02-09] MEDS: LEVOTHYROXINE 50 MCG TABLET PO SCH (05:57)
[2017-02-09 06:36] LABS: BASOPHIL# 0.1 X 10^3uL (0.0-0.1); BASOPHILS 0.7 % (0.0-2.0); EOSINOPHILS 2.2 % (0.0-6.0); EOSINOPHILS# 0.2 X 10^3uL (0.0-0.4); HEMOGLOBIN 10.9 g/dL (12.0-16.0); LYMPHOCYTES 16.5 % (20.0-40.0); LYMPHOCYTES# 1.4 X 10^3uL (0.8-3.8); MEAN CELL VOLUME 92.9 fL (80.0-100.0); MEAN CORPUS. HGB CONCENTRATION 33.1 g/dL (32.0-36.0); MEAN CORPUSCULAR HEMOGLOBIN 30.8 pg (29.0-35.0); MEAN PLATELET VOLUME 7.8 fL (7.4-10.4); MONOCYTES 10.6 % (2.0-10.0); MONOCYTES# 0.9 X 10^3uL (0.2-1.0); NEUTROPHILS# 5.8 X 10^3uL (2.6-6.7); PLATELET COUNT 350 X 10^3uL (130-440); RED BLOOD COUNT 3.56 X 10^6uL (4.20-6.10); RED CELL DISTRIBUTION WIDTH 13.5 % (11.5-14.5); WHITE BLOOD COUNT 8.4 X 10^3uL (3.9-10.7)
[2017-02-09 06:42] LABS: BLOOD UREA NITROGEN 9 mg/dL (7-17); C-REACTIVE PROTEIN 73.9 mg/L (<10.0); CALCIUM 8.9 mg/dL (8.4-10.2); CHLORIDE 106 mmol/L (98-107); CREATININE 0.5 mg/dL (0.5-1.0); EST GLOMERULAR FILTRATION RATE > 60 mL/min; GLUCOSE 88 mg/dL (70-100); POTASSIUM 3.5 mmol/L (3.5-5.1); SODIUM 141 mmol/L (137-145)
--- NOTE | 2017-02-09 07:32 | HISTORY & PHYSICAL ---
DATE OF ADMISSION: 02/08/17 ATTENDING PHYSICIAN: Luiza Krishnan DO PRIMARY CARE PHYSICIAN: Luiza Krishnan DO CHIEF COMPLAINT: Cellulitis of hand related to cat bite. HISTORY OF PRESENT ILLNESS: The patient is a 76-year-old female who was bit by her cat on Sunday02/05/17. She did end up coming to the Emergency Department on 02/06/17 related to concern for infection. At that time she was started on IV Unasyn, and did return for additional doses, 3 total, completing a recheck on the morning of 02/07/17. At that time, it was felt the symptoms had improved and she was therefore transitioned to oral Augmentin to complete the antibiotic course. Patient denies any fevers, chills, but she does have ongoing swelling and redness. On evaluation of her hand today however, it does appear to be significantly swollen with erythema and fluctuance in her dorsal hand. Unfortunately, I do not know what the appearance looked like in the Emergency Department, nor is patient able to give a clear history of what it looked like yesterday. In fact, patient states that at her last recheck, they did not even unwrap her hand to reassess it, so she is not sure what it looks like at all because it has been in a bandage since yesterday. I did ask orthopedics help come and evaluate patient, and he agreed that she still has a significant ongoing infection needing IV antibiotics. He did not feel however that she was in need of debridement or I&D at this time. I did arrange for direct admission from clinic to hospital for further observation and treatment of her cellulitis. PAST MEDICAL HISTORY 1. History of cerebrovascular accident in 2004. She has some mild right sided weakness. 2. 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 3. Arthritis. 4. History of ovarian cancer. 5. Baseline abnormality of gait related to her previous knee surgery. 6. Mild hypolipidemia. 7. Neck, back and knee pain. 8. Hypothyroidism. 9. Hypertension. 10. Hyperkalemia. PAST SURGICAL HISTORY 1. Total hysterectomy related to ovarian cancer. 2. Leg fracture on the right with surgical repair in [place] 3. Right hand surgery related to a cat bite infection last year. FAMILY HISTORY: Father unknown, parents were and she never kept contact. Mother with history of colon cancer. SOCIAL HISTORY: Patient is a full-time [place] resident. She is currently living at [facility] with a roommate. She still drives. She does drink rarely a small glass of wine. She is a former smoker who quit over 20 years ago and she is a DNR status. MEDICATIONS Atenolol 25 mg tablet daily. Levothyroxine 50 mcg daily. Vitamin D 1000 units daily. Calcium 500 mg daily Multivitamin daily. Vitamin E. Daily aspirin 81 mg. Lecithin 400 mg daily. Vitamin C 1000 mg twice daily. Cholestoff 450 mg daily. ALLERGIES: No known drug allergies. REVIEW OF SYSTEMS: GENERAL: Patient denied any fever, chills. She has been slightly more fatigued and having some discomfort related to her left hand. HEENT: No headache. Some chronic sinusitis, but no sore throat. RESPIRATORY: No chest pain. No shortness of breath. CARDIOVASCULAR: No chest pain. No palpitations. No swelling of her extremities. She does have swelling of her hand related to the infection. ABDOMEN: Denies any nausea, vomiting or diarrhea. Has been tolerating the antibiotics well thus far. EXTREMITIES: Left hand with swelling, tenderness, erythema and warmth. She states that her mobility is slightly better than what it was initially earlier this week. PSYCHIATRIC: Denies any change in mental status. PHYSICAL EXAMINATION VITAL SIGNS: Temperature 98.2, blood pressure 131/77, pulse 67, respiratory rate 16, 92% on room air. GENERAL: In acute distress. She was sitting comfortably both in the clinic room as well as in the hospital bed. HEENT: Normocephalic, atraumatic. Oropharynx was clear. Pupils was reactive. She had no jugular venous distention appreciated. NECK: Supple. CARDIOVASCULAR: Normal S1, S2. RESPIRATORY: Good bowel sounds. She was kyphotic in posture, but no use of accessory muscles. ABDOMEN: Soft, nontender, nondistended PERIPHERAL VASCULAR: Lower extremity bilaterally with no edema. Left upper extremity she does have some swelling and edema related to acute infection. SKIN: Left hand with significant redness and induration. Dorsally close to 4th and 5th metacarpal, but does appear to be superficially. She does have an area of fluctuance more at the wrist and slight redness extending up into her forearm , sparing her antecubital fossa. She does have a direct line of demarcation in her MCPs with swelling up until her PIPs but normal motion in her digits and no significant flare in pain with flexion and extension of her fingers. Again, I did ask Dr. Chapman to help with evaluation and he did not feel that additional surgical intervention was needed at this time. Pictures taken on day of admission. LABORATORY: I did order a CBC, CMP and inflammatory markers which have not been resulted yet at time of dictation. ASSESSMENT/PLAN: This is a pleasant 76-year-old female who presented to clinic for follow up of cat bite cellulitis but concern for worsening of symptoms and recommended admission for further IV antibiotics. 1. Cellulitis of the hand: Patient has been getting IV Unasyn as an outpatient through the Emergency Room on 02/06/17, completing course on morning of . At that time she was transitioned to oral Augmentin where she received a dose yesterday afternoon and this morning, and is here for follow up recheck. Patient unable to give clear history of what her symptoms looked like yesterday to demonstrate continued improvement and symptoms do continue to have induration , warmth and erythema, so concern for worsening infection and recommend further observation for IV antibiotics and monitoring. I have marked the area of inflammation. We have restarted IV Unasyn as this seemed to help her previously this week. I did curb site consult Orthopedics, if symptoms are worsening tomorrow, we will formally consult them to assess patient. Await her labs for blood counts and inflammatory markers to further trend. I did not do blood cultures as patient has been afebrile, and she already has been on multiple days of antibiotics. If she does become febrile, we will need 2 separate sets of blood cultures. Will reassess wound throughout evening and tomorrow to see if ongoing IV antibiotics are indicated versus the ability to truly transition to oral. 2. Cat bite: This is the second bite and separate hands for patient related to her own cat. She does not want to do anything further in terms of care of cat, but she did state that she will talk with the vet to see if potentially there should be anything else to be done. Per patient, cat is up to date with regular vet visits. 3. Dehydration :Patient does appear slightly dehydrated and it was pretty difficult for IV placement. She did get a placement in the left antecubital fossa which is site of infection. As we rehydrate with some fluids, will see if we can transition to IV access to a site further away from infectious site. 4. Hypertension: Patient currently stable on her Atenolol. Will continue. 5. Hypothyroidism: Did have labs in August which showed appropriate dosing, will continue. 6. Patient did have some slight abnormalities in her laboratory data, including calcium, but she never had the follow up testing. Will monitor her labs during hospital stay and see if additional workup is indicated. 7. Deep vein thrombosis prophylaxis: Patient is on a daily baby aspirin. We have SCDs placed and she will be ambulating regularly. If turns into a more prolonged stay without surgical intervention, may need to consider Lovenox. 8. DNR. She does not want CPR performed. 9. Disposition: Again, will monitor on IV fluids and reassess response and progression with therapy. [facility]
[2017-02-09] MEDS: ATENOLOL 50 MG TAB PO SCH (08:36)
--- NOTE | 2017-02-09 08:44 | PROGRESS NOTE: IM APSO ---
Assessment and Plan - Date of Encounter Date of Encounter: 02/09/17 (1) Cellulitis and abscess of hand Status: Acute Assessment and plan: Does have improvement in erythema and fluctuation from yesterday but noting more swelling in hand. Will continue IV antibiotics at this time. Try to transition IV site to unaffected side. Will elevate hand as able today. Does still have area of fluctuance however- will ask orthopedics to formally consult on patient to see if any surgical intervention needed. Current Visit: Yes (2) Cat bite Status: Acute Assessment and plan: Currently needing IV antibiotics- recommend additional day of IV therapy and hopes to transition back to oral augmentin (patient already has medication at home). Current Visit: Yes (3) Anemia Status: Acute Assessment and plan: Acute mild anemia- likely hemodilution from IV fluids in combination with acute infection/local trauma. CBC 08/2016 was normal and other sources of bleeding by history. Will recheck after hospitalization and if ongoing anemia will start further work up. Current Visit: Yes (4) Hypertension Status: Chronic Assessment and plan: Stable on home meds Current Visit: Yes (5) Hypothyroid Status: Chronic Assessment and plan: Stable on home meds Current Visit: Yes (6) Kyphosis Status: Chronic Assessment and plan: Obvious postural difficulties but overall mobility is good for patient. Current Visit: Yes - Time Spent With Patient Total time spent with greater than 50% in coordination of care (as documented) at patient's floor/unit and/or counseling patient: IM: PN Subjective General: good appetite, no anxiety, no depression, no fever, no chills HEENT: no headache, no sore throat Cardiovascular: no chest pain, no chest pressure Respiratory: no cough, no SOB Gastrointestinal: no abdominal pain, no nausea, no diarrhea Genitourinary: no dysuria, no flank pain Musculoskeletal: pain (knee, back) Integumentary: other (erythema and swelling) Neurological: no headache, no limb weakness IM: PN Objective Exam - I&O/Vital Signs I&O: Intake & Output 02/08/17 02/09/17 02/09/17 21:59 05:59 13:59 Intake Total 600 1450 Output Total 450 Balance 600 1000 Weight 45.5 kg 47 kg Intake: IV 1275 Left Antecubital 1275 Oral 600 175 Output: Urine 450 Other: Urine Appearance Clear Clear Urine Color Straw Yellow Voiding Method Toilet Toilet # Voids 2 Vital Signs: Last Vital Signs Temp 36.9 C 02/09/17 07:00 Pulse 68 02/09/17 07:00 Resp 16 02/09/17 07:00 BP 139/77 02/09/17 07:00 Pulse Ox 92 02/09/17 07:00 Oxygen Delivery Method Room Air - Constitutional General appearance: Present: cooperative, thin. Absent: acute distress - Head Head exam: Present: atraumatic, normal inspection - Eye Eye exam: Absent: conjunctival injection - ENT ENT exam: Present: mucous membranes moist, normal oropharynx - Neck Neck exam: Present: normal inspection. Absent: tenderness - Respiratory Respiratory exam: Present: CTAB. Absent: accessory muscle use - Cardiovascular Cardiovascular exam: Present: RRR - GI/Abdominal GI/Abdominal exam: Present: normal bowel sounds, soft. Absent: tenderness - Extremities Exam Extremities exam: Present: edema (left hand/arm), tenderness (left hand) - Back Exam Back exam: Present: other (kyphotic appearance) - Neurological Exam Neurological exam: Present: abnormal gait (baseline), alert, oriented X3 - Psychiatric Psychiatric exam: Present: normal affect, normal mood - Skin Skin exam: Present: erythema, warm, other (ongoing induration and fluctuation left hand- improvement when compared to examination yesterday but does appear more swollen) - Allied Health Notes Allied health notes reviewed: nursing - Lab Labs: Laboratory Last Values WBC 8.4 X 10^3uL (3.9-10.7) 02/09/17 05:55 RBC 3.56 X 10^6uL (4.20-6.10) L 02/09/17 05:55 Hgb 10.9 g/dL (12.0-16.0) L 02/09/17 05:55 Hct 33.0 % (36.0-48.0) L 02/09/17 05:55 MCV 92.9 fL (80.0-100.0) 02/09/17 05:55 MCH 30.8 pg (29.0-35.0) 02/09/17 05:55 MCHC 33.1 g/dL (32.0-36.0) 02/09/17 05:55 RDW 13.5 % (11.5-14.5) 02/09/17 05:55 Plt Count 350 X 10^3uL (130-440) 02/09/17 05:55 MPV 7.8 fL (7.4-10.4) 02/09/17 05:55 Neutrophils % 70.0 % (54.0-75.0) 02/09/17 05:55 Lymphocytes % 16.5 % (20.0-40.0) L 02/09/17 05:55 Eosinophils % 2.2 % (0.0-6.0) 02/09/17 05:55 Basophils % 0.7 % (0.0-2.0) 02/09/17 05:55 Neutrophils # 5.8 X 10^3uL (2.6-6.7) 02/09/17 05:55 Lymphocytes # 1.4 X 10^3uL (0.8-3.8) 02/09/17 05:55 Monocytes 10.6 % (2.0-10.0) H 02/09/17 05:55 Monocytes # 0.9 X 10^3uL (0.2-1.0) 02/09/17 05:55 Eosinophils # 0.2 X 10^3uL (0.0-0.4) 02/09/17 05:55 Basophils # 0.1 X 10^3uL (0.0-0.1) 02/09/17 05:55 ESR 52 MM/HR (0-20) H 02/08/17 18:50 Sodium 141 mmol/L (137-145) 02/09/17 05:55 Potassium 3.5 mmol/L (3.5-5.1) 02/09/17 05:55 Chloride 106 mmol/L (98-107) 02/09/17 05:55 Carbon Dioxide 25 mmol/L (22-30) 02/09/17 05:55 BUN 9 mg/dL (7-17) 02/09/17 05:55 Creatinine 0.5 mg/dL (0.5-1.0) 02/09/17 05:55 GFR Calculation > 60 mL/min 02/09/17 05:55 Glucose 88 mg/dL (70-100) 02/09/17 05:55 Calcium 8.9 mg/dL (8.4-10.2) 02/09/17 05:55 C-Reactive Protein 73.9 mg/L (<10.0) H 02/09/17 05:55 Quality Questions - VTE Prophylaxis Assessment VTE Present on Admission?: No Patient at risk for venous thromboembolism?: Yes VTE Risk Level: Moderate Risk Pharmaceutical VTE prophylaxis contraindication reason: N/A- VTE prophylaxsis ordered Mechanical VTE prophylaxis contraindication reason: N/A- VTE prophylaxsis ordered
--- NOTE | 2017-02-09 20:43 | CONSULTATION ---
DATE OF CONSULTATION: 02/08/17 BARBER: Tommy Chapman DO HISTORY OF PRESENT ILLNESS: Patient is a 76-year-old female admitted to the hospital by Dr. Luiza Krishnan. She had a cat bite originally on 02/05/17 and ended up coming into the Emergency Room the next day for concern for infection. She has a history of a cat bite on the contralateral hand by the same cat which had to have a surgery done last year. She ended up getting a total of 3 doses of Unasyn by the Emergency Room after coming in as an outpatient for IV antibiotic treatment and was transitioned to oral Augmentin. She presented yesterday to the clinic with a swollen hand and erythema on the dorsum of the hand and forearm. She was admitted directly from the clinic yesterday and after being seen by Dr. Krishnan. PAST MEDICAL HISTORY 1. Cerebrovascular accident in 2004 with some right sided weakness. 2. Osteoporosis with a kyphotic posture. 3. Arthritis. 4. Ovarian cancer. 5. Baseline abnormality of gait related to her previous knee surgery. 6. Hyperlipidemia. 7. Hypothyroidism. 8. Hypertension. 9. Hyperkalemia. PAST SURGICAL HISTORY 1. Total hysterectomy related to her history of ovarian cancer. 2. Right leg fracture. 3. Right hand surgery with irrigation and debridement from a cat bite from the same cat. 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 She rarely drinks a small glass of wine. She quit smoking 20 years ago. MEDICATIONS Atenolol. Levothyroxine. Vitamin D. Calcium. Multivitamin. Vitamin E daily. Aspirin. Lecithin Vitamin C. Cholestoff. ALLERGIES: No known drug allergies. PHYSICAL EXAMINATION VITAL SIGNS: Patient has denied any fevers or chills. Since admission to the hospital she has not had any fever. LEFT HAND: Examination reveals a swollen area over the dorsum of the hand. The hand is erythematous and swollen as are the digits. She has swelling around the wrist also. There is a demarcation of the erythema about the level of the wrist and there is a marked area up on the forearm fdc to the elbow where the area of demarcation was marked with a marker, but this area appears normal at this point. Evidently after the patient had been receiving IV antibiotics, her erythema has improved. She has no pain with range of motion of her wrist or fingers. She has mild pain with palpation over the dorsum of her hand, the erythematous area. ASSESSMENT: Cat bite cellulitis. PLAN: Continue IV antibiotics. I will re-evaluate the patient's hand tomorrow. The IV antibiotics appear to be efficacious as the erythematous area has gotten smaller on the arm; however, the dorsum of the hand is still swollen and may need surgical drainage if there is no improvement. RANDY
[2017-02-10] MEDS: AMPICILLIN/SULBACTAM 1.5 GM in NORMAL SALINE MINI-BAG+ 100 ML IV SCH ×5 (00:38→23:32)
[2017-02-10] MEDS: LEVOTHYROXINE 50 MCG TABLET PO SCH (05:30)
[2017-02-10 06:56] LABS: BASOPHIL# 0.1 X 10^3uL (0.0-0.1); BASOPHILS 0.7 % (0.0-2.0); EOSINOPHILS 2.2 % (0.0-6.0); EOSINOPHILS# 0.2 X 10^3uL (0.0-0.4); HEMATOCRIT 31.9 % (36.0-48.0); HEMOGLOBIN 10.6 g/dL (12.0-16.0); LYMPHOCYTES 17.6 % (20.0-40.0); LYMPHOCYTES# 1.6 X 10^3uL (0.8-3.8); MEAN CELL VOLUME 92.7 fL (80.0-100.0); MEAN CORPUS. HGB CONCENTRATION 33.2 g/dL (32.0-36.0); MEAN CORPUSCULAR HEMOGLOBIN 30.7 pg (29.0-35.0); MONOCYTES# 0.8 X 10^3uL (0.2-1.0); NEUTROPHILS 70.5 % (54.0-75.0); NEUTROPHILS# 6.5 X 10^3uL (2.6-6.7); RED BLOOD COUNT 3.44 X 10^6uL (4.20-6.10); RED CELL DISTRIBUTION WIDTH 13.5 % (11.5-14.5); WHITE BLOOD COUNT 9.2 X 10^3uL (3.9-10.7)
[2017-02-10] MEDS: ATENOLOL 50 MG TAB PO SCH (08:42)
[2017-02-10] MEDS ORDERED: AMPICILLIN/SULBACTAM 1.5 GM/10 ML VIAL IV ONE ×3 (11:42→23:44)
[2017-02-10] MEDS ORDERED: NORMAL SALINE MINI-BAG+ 100 ML IV ONE (11:45)
[2017-02-10] MEDS ORDERED: LIDOCAINE HCL 1% 20 ML VIAL SUBCUT ONE (15:16)
[2017-02-10] MEDS ORDERED: METOCLOPRAMIDE HCL 10 MG/2 ML VIAL IV ONE (15:16)
[2017-02-10] MEDS ORDERED: FENTANYL 100 MCG/2 ML VIAL ONE ×2 (15:22→17:08)
[2017-02-10] MEDS ORDERED: FAMOTIDINE IN SALINE, ISO-OSM 20 MG/50 ML PIGGYBACK IV SCH (15:30)
[2017-02-10] MEDS ORDERED: BACITRACIN 50,000 UNITS VIAL IM ONE (15:44)
[2017-02-10] MEDS ORDERED: NORMAL SALINE FLUSH 10 ML ONE (15:44)
[2017-02-10] MEDS ORDERED: FENTANYL 100 MCG/2 ML VIAL IV PRN (15:54)
[2017-02-10] MEDS ORDERED: HYDROmorphone HCL 1 MG/ML SYR IV PRN (15:54)
[2017-02-10] MEDS ORDERED: LACTATED RINGERS 1,000 ML IV SCH (16:00)
[2017-02-10] MEDS ORDERED: BUPIVACAINE/EPI 0.25% 1 VIAL VIAL ONE (16:03)
[2017-02-10] MEDS ORDERED: EPHEDrine SULFATE 50 MG/ML VIAL ONE (16:12)
[2017-02-10] MEDS ORDERED: ONDANSETRON HCL 4 MG/2 ML VIAL ONE (16:32)
--- NOTE | 2017-02-10 16:54 | PROGRESS NOTE: Orthopedics ---
Orthopedic PN Subjective - Subjective Principal Diagnosis: Left hand cat bite infection Interval history: Pts arm has improved, but the hand is worse. Has been receiving IV ABX pre medicine Pain controlled. Ortho PN Objective Exam - Latest Vital Signs and I&O Latest Vital Signs/I&O: Vital Signs Temp 36.3 C L 02/10/17 16:47 Pulse 74 02/10/17 16:47 Resp 14 02/10/17 16:47 BP 149/90 02/10/17 16:47 Pulse Ox 99 02/10/17 16:47 Intake & Output 02/09/17 02/10/17 02/10/17 17:59 05:59 17:59 Intake Total 650 350 Output Total 600 1300 Balance 50 -950 Weight 47 kg 45.5 kg Intake: IV 350 250 Left Antecubital 350 250 Oral 300 100 Output: Urine 600 1300 Other: Urine Appearance Clear Clear Clear Urine Color Yellow Pale Pale Yellow Yellow Stool Size Moderate Moderate Stool Characteristics Soft Soft Voiding Method Toilet Toilet Toilet # Voids 5 # Bowel Movements 1 - Post-Operative Exam Drainage Amount: none Distal Pulses: +2 Active Motor: intact Sensation: intact Additional Exam: Increased swelling and erythema at dorsum of hand and wrist. - Lab Labs: Laboratory Last Values WBC 9.2 X 10^3uL (3.9-10.7) 02/10/17 05:55 RBC 3.44 X 10^6uL (4.20-6.10) L 02/10/17 05:55 Hgb 10.6 g/dL (12.0-16.0) L 02/10/17 05:55 Hct 31.9 % (36.0-48.0) L 02/10/17 05:55 MCV 92.7 fL (80.0-100.0) 02/10/17 05:55 MCH 30.7 pg (29.0-35.0) 02/10/17 05:55 MCHC 33.2 g/dL (32.0-36.0) 02/10/17 05:55 RDW 13.5 % (11.5-14.5) 02/10/17 05:55 Plt Count 389 X 10^3uL (130-440) 02/10/17 05:55 MPV 8.0 fL (7.4-10.4) 02/10/17 05:55 Neutrophils % 70.5 % (54.0-75.0) 02/10/17 05:55 Lymphocytes % 17.6 % (20.0-40.0) L 02/10/17 05:55 Eosinophils % 2.2 % (0.0-6.0) 02/10/17 05:55 Basophils % 0.7 % (0.0-2.0) 02/10/17 05:55 Neutrophils # 6.5 X 10^3uL (2.6-6.7) 02/10/17 05:55 Lymphocytes # 1.6 X 10^3uL (0.8-3.8) 02/10/17 05:55 Monocytes 9.0 % (2.0-10.0) 02/10/17 05:55 Monocytes # 0.8 X 10^3uL (0.2-1.0) 02/10/17 05:55 Eosinophils # 0.2 X 10^3uL (0.0-0.4) 02/10/17 05:55 Basophils # 0.1 X 10^3uL (0.0-0.1) 02/10/17 05:55 ESR 52 MM/HR (0-20) H 02/08/17 18:50 Sodium 141 mmol/L (137-145) 02/09/17 05:55 Potassium 3.5 mmol/L (3.5-5.1) 02/09/17 05:55 Chloride 106 mmol/L (98-107) 02/09/17 05:55 Carbon Dioxide 25 mmol/L (22-30) 02/09/17 05:55 BUN 9 mg/dL (7-17) 02/09/17 05:55 Creatinine 0.5 mg/dL (0.5-1.0) 02/09/17 05:55 GFR Calculation > 60 mL/min 02/09/17 05:55 Glucose 88 mg/dL (70-100) 02/09/17 05:55 Calcium 8.9 mg/dL (8.4-10.2) 02/09/17 05:55 C-Reactive Protein 71.0 mg/L (<10.0) H 02/10/17 05:55 Assessment and Plan-Ortho - Date of Encounter Date of Encounter: 02/10/17 (1) Cat bite Status: Acute Assessment and plan: Patient will need surgical intervention today to drain and irrigate the hand and tendon sheaths. Current Visit: Yes (2) Cellulitis and abscess of hand Status: Acute Assessment and plan: As above. Current Visit: Yes
[2017-02-10] MEDS ORDERED: ACETAMINOPHEN 325 MG TABLET PO PRN (17:55)
[2017-02-10] MEDS ORDERED: HYDROcodone/APAP 5/325 MG 1 TAB TABLET PO PRN (17:55)
[2017-02-10] MEDS ORDERED: SODIUM CHLORIDE IV ONE (18:52)
--- NOTE | 2017-02-10 23:20 | OPERATIVE REPORT ---
SURGEON: Tommy Chapman DO ANESTHESIA: General. PREOPERATIVE DIAGNOSIS: Left hand infected cat bite. POSTOPERATIVE DIAGNOSIS: Left hand infected cat bite. OPERATION PERFORMED: Left incision with irrigation and debridement. ESTIMATED BLOOD LOSS: 70 mL. CONDITION: Stable. COMPLICATIONS: None. TOTAL TOURNIQUET TIME: 10 minutes. PROCEDURE NOTE: The patient was brought to the operating room suite and after administration of general anesthesia the left upper extremity was prepped and draped in a sterile fashion. An incision was made over the dorsum of the hand directly over the cat bite and over the swollen area of the hand, which was fluctuant. Immediately upon incision, there was a significant amount of white pus that came out of the hand. The patient did have some bleeding from a dorsal vein which was cauterized and there were some other small bleeders that were also cauterized, but ultimately a sterile tourniquet was placed, followed by an Esmarch bandage application and insufflation of a tourniquet. The tendon sheath and pathological appearing soft tissue were opened up and flushed out and debrided of nonvital appearing tissue. The patient also had some swelling on dorsum of the hand with flexion in this area. Therefore a second incision was made over the wrist and this compartment was opened up which also communicated with the hand space. A third incision was made down by the metatarsal phalangeal joint of the index finger, as there was some communication down this area. All the tendon sheaths on the dorsum of the hand were opened up and a layer underneath the tendons was also irrigated out copiously with bacitracin infused with normal saline with bulb syringe. The irrigation was done in such a manner that the irrigation fluid communicated between the 3 incisions. Two Christian drains were inserted through the 3 incisions, followed by loose closure of the incisions with horizontal mattress and simple interrupted sutures utilizing 3-0 nylon. Tourniquet was let down and patient had no bleeding. The hand was cleaned and dressed with Xeroform, followed by 4x4s, 4x4 s fluffs, ABDs, Kerlex and an Nahun bandage. The patient was transferred from the operating room suite to the recovery room in stable condition. RANDY
[2017-02-11] MEDS: LEVOTHYROXINE 50 MCG TABLET PO SCH (06:23)
[2017-02-11] MEDS: AMPICILLIN/SULBACTAM 1.5 GM in NORMAL SALINE MINI-BAG+ 100 ML IV SCH ×3 (06:23→17:49)
[2017-02-11] MEDS ORDERED: AMPICILLIN/SULBACTAM 1.5 GM/10 ML VIAL IV ONE ×3 (06:24→23:42)
[2017-02-11] MEDS: ATENOLOL 50 MG TAB PO SCH (08:19)
[2017-02-11] MEDS: DOCUSATE SODIUM 100 MG CAPSULE PO SCH ×2 (09:25→20:12)
[2017-02-11] MEDS ORDERED: POLYETHYLENE GLYCOL 3350 17 GM POWD.PACK PO ONE (10:00)
--- NOTE | 2017-02-11 10:51 | PROGRESS NOTE: IM APSO ---
Assessment and Plan - Date of Encounter Date of Encounter: 02/11/17 (1) Anemia Status: Suspected Assessment and plan: She does look pale. H/H trending down for unclear reasons, will reassess today as d/c is probably in near future. Current Visit: Yes (2) Cat bite Status: Acute Current Visit: Yes (3) Cellulitis and abscess of hand Status: Acute Assessment and plan: Eryth and swelling much improved, has several drains in the hand, dressing instr per Dr Chapman, we discussed continuing IV abx fo another day, then probably Augmentin or whatever cultures indicate. Current Visit: Yes (4) Hypertension Status: Chronic Assessment and plan: controlled Current Visit: Yes (5) Kyphosis Status: Chronic Assessment and plan: Gets along OK. Declines cane mostly, but appears unsteady walking the halls without an arm or cane. Current Visit: Yes - Time Spent With Patient Total time spent with greater than 50% in coordination of care (as documented) at patient's floor/unit and/or counseling patient: IM: PN Subjective General: good appetite, no anxiety, no depression, no fever, no chills HEENT: no headache, no sore throat Cardiovascular: no chest pain, no chest pressure Respiratory: no cough, no SOB Gastrointestinal: no abdominal pain, no nausea, no diarrhea Genitourinary: no dysuria, no flank pain Musculoskeletal: pain (knee, back) Integumentary: other (erythema and swelling) Neurological: no headache, no limb weakness IM: PN Objective Exam - I&O/Vital Signs I&O: Intake & Output 02/10/17 02/11/17 02/11/17 21:59 05:59 13:59 Intake Total 1000 100 Output Total 500 700 Balance 500 -600 Weight 45.5 kg 48.5 kg Intake: IV 700 Right Wrist 700 Oral 300 100 Output: Urine 500 700 Other: Urine Appearance Clear Clear Clear Urine Color Pale Yellow Yellow Yellow Voiding Method Toilet Toilet Toilet # Voids 4 # Bowel Movements 0 Vital Signs: Last Vital Signs Temp 36.6 C 02/11/17 07:00 Pulse 78 02/11/17 06:52 Resp 18 02/11/17 08:23 BP 133/79 02/11/17 06:52 Pulse Ox 90 02/11/17 08:23 Oxygen Flow Rate 1 Oxygen Delivery Method Room Air - Constitutional General appearance: Present: cooperative, thin. Absent: acute distress - Head Head exam: Present: atraumatic, normal inspection - Eye Eye exam: Absent: conjunctival injection - ENT ENT exam: Present: mucous membranes moist, normal oropharynx - Neck Neck exam: Present: normal inspection. Absent: tenderness - Respiratory Respiratory exam: Present: CTAB. Absent: accessory muscle use - Cardiovascular Cardiovascular exam: Present: RRR - GI/Abdominal GI/Abdominal exam: Present: normal bowel sounds, soft. Absent: tenderness - Extremities Exam Extremities exam: Present: edema (left hand/arm reduced swelling and erythema for certain!), tenderness (left hand) - Back Exam Back exam: Present: other (kyphotic appearance) - Neurological Exam Neurological exam: Present: abnormal gait (baseline), alert, oriented X3 - Psychiatric Psychiatric exam: Present: normal affect, normal mood - Skin Skin exam: Present: erythema, warm, other (ongoing induration and fluctuation left hand- improvement when compared to examination yesterday but does appear more swollen) - Allied Health Notes Allied health notes reviewed: nursing - Lab Labs: Laboratory Last Values WBC 9.2 X 10^3uL (3.9-10.7) 02/10/17 05:55 RBC 3.44 X 10^6uL (4.20-6.10) L 02/10/17 05:55 Hgb 10.6 g/dL (12.0-16.0) L 02/10/17 05:55 Hct 31.9 % (36.0-48.0) L 02/10/17 05:55 MCV 92.7 fL (80.0-100.0) 02/10/17 05:55 MCH 30.7 pg (29.0-35.0) 02/10/17 05:55 MCHC 33.2 g/dL (32.0-36.0) 02/10/17 05:55 RDW 13.5 % (11.5-14.5) 02/10/17 05:55 Plt Count 389 X 10^3uL (130-440) 02/10/17 05:55 MPV 8.0 fL (7.4-10.4) 02/10/17 05:55 Neutrophils % 70.5 % (54.0-75.0) 02/10/17 05:55 Lymphocytes % 17.6 % (20.0-40.0) L 02/10/17 05:55 Eosinophils % 2.2 % (0.0-6.0) 02/10/17 05:55 Basophils % 0.7 % (0.0-2.0) 02/10/17 05:55 Neutrophils # 6.5 X 10^3uL (2.6-6.7) 02/10/17 05:55 Lymphocytes # 1.6 X 10^3uL (0.8-3.8) 02/10/17 05:55 Monocytes 9.0 % (2.0-10.0) 02/10/17 05:55 Monocytes # 0.8 X 10^3uL (0.2-1.0) 02/10/17 05:55 Eosinophils # 0.2 X 10^3uL (0.0-0.4) 02/10/17 05:55 Basophils # 0.1 X 10^3uL (0.0-0.1) 02/10/17 05:55 ESR 52 MM/HR (0-20) H 02/08/17 18:50 Sodium 141 mmol/L (137-145) 02/09/17 05:55 Potassium 3.5 mmol/L (3.5-5.1) 02/09/17 05:55 Chloride 106 mmol/L (98-107) 02/09/17 05:55 Carbon Dioxide 25 mmol/L (22-30) 02/09/17 05:55 BUN 9 mg/dL (7-17) 02/09/17 05:55 Creatinine 0.5 mg/dL (0.5-1.0) 02/09/17 05:55 GFR Calculation > 60 mL/min 02/09/17 05:55 Glucose 88 mg/dL (70-100) 02/09/17 05:55 Calcium 8.9 mg/dL (8.4-10.2) 02/09/17 05:55 C-Reactive Protein 71.0 mg/L (<10.0) H 02/10/17 05:55
[2017-02-11] MEDS ORDERED: NORMAL SALINE MINI-BAG+ 200 ML IV ONE (11:49)
[2017-02-11 11:53] LABS: HEMATOCRIT 31.6 % (36.0-48.0); HEMOGLOBIN 10.8 g/dL (12.0-16.0)
[2017-02-11] MEDS ORDERED: NORMAL SALINE 500 ML IV ONE (11:58)
--- NOTE | 2017-02-11 22:19 | PROGRESS NOTE: Orthopedics ---
Orthopedic PN Subjective - Subjective Principal Diagnosis: Infected Cat Bite Left Hand Post-op Day: 1 Interval history: Pt doing better. Less pain today. Ortho PN Objective Exam - Latest Vital Signs and I&O Latest Vital Signs/I&O: Vital Signs Temp 36.4 C 02/11/17 18:26 Pulse 80 02/11/17 18:26 Resp 12 02/11/17 21:00 BP 142/84 02/11/17 18:26 Pulse Ox 90 02/11/17 21:00 Intake & Output 02/11/17 02/11/17 02/12/17 05:59 17:59 05:59 Intake Total 100 440 Output Total 700 500 Balance -600 -60 Weight 48.5 kg Intake: Oral 100 440 Output: Urine 700 500 Other: Urine Appearance Clear Clear Clear Urine Color Yellow Pale Pale Voiding Method Toilet Toilet Toilet # Voids 4 - Post-Operative Exam Post-op Day: 1 Dressing Status: changed Drainage Amount: minimal Drainage Description: serosanguineous Distal Pulses: +2 Active Motor: intact Sensation: intact Additional Exam: Drains in place (3). Erythema reduced. Swelling reduced. - Lab Labs: Laboratory Last Values WBC 9.2 X 10^3uL (3.9-10.7) 02/10/17 05:55 RBC 3.44 X 10^6uL (4.20-6.10) L 02/10/17 05:55 Hgb 10.8 g/dL (12.0-16.0) L 02/11/17 10:46 Hct 31.6 % (36.0-48.0) L 02/11/17 10:46 MCV 92.7 fL (80.0-100.0) 02/10/17 05:55 MCH 30.7 pg (29.0-35.0) 02/10/17 05:55 MCHC 33.2 g/dL (32.0-36.0) 02/10/17 05:55 RDW 13.5 % (11.5-14.5) 02/10/17 05:55 Plt Count 389 X 10^3uL (130-440) 02/10/17 05:55 MPV 8.0 fL (7.4-10.4) 02/10/17 05:55 Neutrophils % 70.5 % (54.0-75.0) 02/10/17 05:55 Lymphocytes % 17.6 % (20.0-40.0) L 02/10/17 05:55 Eosinophils % 2.2 % (0.0-6.0) 02/10/17 05:55 Basophils % 0.7 % (0.0-2.0) 02/10/17 05:55 Neutrophils # 6.5 X 10^3uL (2.6-6.7) 02/10/17 05:55 Lymphocytes # 1.6 X 10^3uL (0.8-3.8) 02/10/17 05:55 Monocytes 9.0 % (2.0-10.0) 02/10/17 05:55 Monocytes # 0.8 X 10^3uL (0.2-1.0) 02/10/17 05:55 Eosinophils # 0.2 X 10^3uL (0.0-0.4) 02/10/17 05:55 Basophils # 0.1 X 10^3uL (0.0-0.1) 02/10/17 05:55 ESR 52 MM/HR (0-20) H 02/08/17 18:50 Sodium 141 mmol/L (137-145) 02/09/17 05:55 Potassium 3.5 mmol/L (3.5-5.1) 02/09/17 05:55 Chloride 106 mmol/L (98-107) 02/09/17 05:55 Carbon Dioxide 25 mmol/L (22-30) 02/09/17 05:55 BUN 9 mg/dL (7-17) 02/09/17 05:55 Creatinine 0.5 mg/dL (0.5-1.0) 02/09/17 05:55 GFR Calculation > 60 mL/min 02/09/17 05:55 Glucose 88 mg/dL (70-100) 02/09/17 05:55 Calcium 8.9 mg/dL (8.4-10.2) 02/09/17 05:55 C-Reactive Protein 75.0 mg/L (<10.0) H 02/11/17 10:46 - Allied Health Notes Allied health notes reviewed: nursing Assessment and Plan-Ortho - Date of Encounter Date of Encounter: 02/11/17 (1) Cat bite Status: Acute Assessment and plan: Dressing changed. Less swelling and erythema today Maintain dressing and continue IV ABX. Current Visit: Yes (2) Cellulitis and abscess of hand Status: Acute Current Visit: Yes
[2017-02-12] MEDS: AMPICILLIN/SULBACTAM 1.5 GM in NORMAL SALINE MINI-BAG+ 100 ML IV SCH ×3 (00:03→11:19)
[2017-02-12] MEDS ORDERED: AMPICILLIN/SULBACTAM 1.5 GM/10 ML VIAL IV ONE ×2 (05:48→10:41)
[2017-02-12] MEDS: LEVOTHYROXINE 50 MCG TABLET PO SCH (05:58)
[2017-02-12] MEDS: DOCUSATE SODIUM 100 MG CAPSULE PO SCH (08:21)
[2017-02-12] MEDS: ATENOLOL 50 MG TAB PO SCH (08:21)
[2017-02-12] MEDS ORDERED: POLYETHYLENE GLYCOL 3350 17 GM POWD.PACK ONE (08:29)
[2017-02-12 08:52] LABS: BASOPHIL# 0.1 X 10^3uL (0.0-0.1); EOSINOPHILS 3.3 % (0.0-6.0); EOSINOPHILS# 0.2 X 10^3uL (0.0-0.4); HEMATOCRIT 31.7 % (36.0-48.0); HEMOGLOBIN 10.9 g/dL (12.0-16.0); LYMPHOCYTES 19.8 % (20.0-40.0); LYMPHOCYTES# 1.3 X 10^3uL (0.8-3.8); MEAN CELL VOLUME 91.7 fL (80.0-100.0); MEAN CORPUS. HGB CONCENTRATION 34.3 g/dL (32.0-36.0); MEAN CORPUSCULAR HEMOGLOBIN 31.5 pg (29.0-35.0); MEAN PLATELET VOLUME 6.9 fL (7.4-10.4); MONOCYTES 7.1 % (2.0-10.0); MONOCYTES# 0.5 X 10^3uL (0.2-1.0); NEUTROPHILS 68.8 % (54.0-75.0); NEUTROPHILS# 4.5 X 10^3uL (2.6-6.7); RED BLOOD COUNT 3.46 X 10^6uL (4.20-6.10); RED CELL DISTRIBUTION WIDTH 13.1 % (11.5-14.5); WHITE BLOOD COUNT 6.6 X 10^3uL (3.9-10.7)
--- NOTE | 2017-02-12 08:55 | DC SUMMARY: IM Note ---
Discharge Summary: IM/Peds Provider: Date of Admission: 02/08/17 Admitting Provider: JOSE DAVID HATCH Attending Provider: JOSE DAVID HATCH Discharging Provider: SHAKIR AUSTIN MD Primary Care Provider: Discharge Date: 02/12/17 - Diagnosis (1) Cellulitis and abscess of hand Status: Acute (2) Cat bite Status: Acute Qualifiers: Encounter type: subsequent encounter Qualified Code(s): W55.01XD - Bitten by cat, subsequent encounter (3) Hypertension Status: Chronic Qualifiers: Hypertension type: essential hypertension Qualified Code(s): I10 - Essential (primary) hypertension (4) Anemia Status: Acute Qualifiers: Anemia type: unspecified type Qualified Code(s): D64.9 - Anemia, unspecified (5) Hypothyroid Status: Chronic (6) Kyphosis Status: Chronic - Time Spent with Patient Total time spent providing and/or coordinating discharge services: Time with patient DS: Greater than 30 minutes Discharge Disposition: HOME, SELF-CARE Discharge Summary Data - Medication History Medication History: Home Medications Atenolol [Tenormin*] 12.5 mg PO DAILY 02/08/17 Levothyroxine [Synthroid*] 50 mcg PO DAILY 02/08/17 aspirin EC [Aspirin EC*] 81 mg PO Q48H 02/08/17 Inpatient Medications 02/10/17 17:55 Acetaminophen [Tylenol] 650 mg PO Q6H PRN HYDROcodone/APAP 5/325 MG [[place]] 2 tab PO Q3H PRN 02/10/17 18:00 Ampicillin/Sulbactam [Unasyn] 1.5 gm Normal Saline Mini-Bag+ [Sodium Chloride 100 ml Mini-Bag Plus] 100 ml IV Q6H 02/11/17 06:30 Levothyroxine [Synthroid] 50 mcg PO BEFORE BREAKFAST 02/11/17 09:00 Atenolol [Tenormin] 12.5 mg PO DAILY Docusate Sodium [Colace] 100 mg PO BID aspirin EC [Ecotrin 81 mg] 81 mg PO DAILY Procedures and tests throughout hospitalization: Completed Lab Orders 02/08/17 18:50 BASIC METABOLIC PANEL [CHEM] Urgent C-REACTIVE PROTEIN [CHEM] Urgent CBC AUTO DIF, MDIF/RMOR IF IND [HEM] Urgent ERYTHROCYTE SEDIMENTATION RATE [HEM] Urgent 02/09/17 05:55 BASIC METABOLIC PANEL [CHEM] AMDRAW CBC AUTO DIF, MDIF/RMOR IF IND [HEM] AMDRAW crp [C-REACTIVE PROTEIN] [CHEM] AMDRAW 02/10/17 05:55 CBC AUTO DIF, MDIF/RMOR IF IND [HEM] AMDRAW crp [C-REACTIVE PROTEIN] [CHEM] AMDRAW 02/11/17 10:46 HGB & HCT PANEL [HEM] Routine crp [C-REACTIVE PROTEIN] [CHEM] Routine Pending Orders 02/08/17 15:30 Admit: Observation Routine Activity: Ambulate TID Activity: Bathroom Privileges . Assess pulse oximetry Daily Intake and Output QSHIFT I&O Obtain weight 0600 Resuscitation Status Routine Sequential Compression Device WHILE IN BED Titrate Oxygen TITRATE TO >90% Vital Signs Q4H Painter Plate Consult [CM] Routine 02/08/17 15:31 VTE Prophylaxis Scoring/ Ordering Routine 02/09/17 09:58 Wound Evaluation [WOUND] . 02/10/17 16:00 WOUND CULTURE [RM] Routine WOUND CULTURE [RM] Routine 02/10/17 17:55 Acetaminophen [Tylenol] 650 mg PO Q6H PRN HYDROcodone/APAP 5/325 MG [[place]] 2 tab PO Q3H PRN 02/10/17 18:00 Ampicillin/Sulbactam [Unasyn] 1.5 gm Normal Saline Mini-Bag+ [Sodium Chloride 100 ml Mini-Bag Plus] 100 ml IV Q6H 02/11/17 06:30 Levothyroxine [Synthroid] 50 mcg PO BEFORE BREAKFAST 02/11/17 09:00 Atenolol [Tenormin] 12.5 mg PO DAILY Docusate Sodium [Colace] 100 mg PO BID aspirin EC [Ecotrin 81 mg] 81 mg PO DAILY 02/11/17 Breakfast DIET [Regular] [DIET] 02/12/17 08:42 CBC AUTO DIF, MDIF/RMOR IF IND [HEM] Stat cmp [COMPREHENSIVE METABOLIC PANEL] [CHEM] Stat Labs on day of discharge: Labs from last 24 hours 02/12/17 02/12/17 02/11/17 08:42 08:42 10:46 WBC Pending RBC Pending Hgb Pending 10.8 L Hct Pending 31.6 L MCV Pending MCH Pending MCHC Pending RDW Pending Plt Count Pending MPV Pending Neutrophils % Pending Lymphocytes % Pending Eosinophils % Pending Basophils % Pending Neutrophils # Pending Lymphocytes # Pending Monocytes Pending Monocytes # Pending Eosinophils # Pending Basophils # Pending Sodium Pending Potassium Pending Chloride Pending Carbon Dioxide Pending BUN Pending Creatinine Pending GFR Calculation Pending Glucose Pending Calcium Pending Total Bilirubin Pending AST Pending ALT Pending Alkaline Phosphatase Pending C-Reactive Protein 75.0 H Total Protein Pending Albumin Pending Albumin/Globulin Ratio Pending Preliminary micro results at discharge 02/10/17 16:00 Wound Culture - Preliminary Wrist - Left NO GROWTH TO DATE 02/10/17 16:00 Wound Culture - Preliminary Hand - Left - Impressions Carleen was admitted for infected cat bite. She had been treated in the ED, but her infection worsened. She was treated with IV Unasyn. She underwent incision and drainage under anesthesia with orthopedic surgeon, Dr. Chapman with the removal of significant purulent drainage. She has greatly improved with no recent fevers, chills, or sweats. Her WBC has been normal. Her CRP remains elevated. Her wound cultures are pending. She will be discharged home on Augmentin. She developed anemia. I have sent iron studies. IM: Discharge Physical Exam - I&O/Vital Signs I&O: Intake & Output 02/11/17 02/12/17 02/12/17 21:59 05:59 13:59 Intake Total 440 340 Output Total 500 250 Balance -60 90 Weight 48.5 kg Intake: IV 200 Right Forearm 200 Oral 440 140 Output: Urine 500 250 Other: Urine Appearance Clear Clear Urine Color Pale Yellow Voiding Method Toilet Toilet # Voids 1 Vital Signs: Last Vital Signs Temp 36.6 C 02/12/17 06:44 Pulse 82 02/12/17 06:44 Resp 16 02/12/17 06:44 BP 143/85 02/12/17 06:44 Pulse Ox 90 02/12/17 06:44 Oxygen Flow Rate 1 Oxygen Delivery Method Room Air - Constitutional General appearance: Present: cooperative, thin. Absent: acute distress - Head Head exam: Present: atraumatic, normal inspection - Eye Eye exam: Present: EOMI, PERRL. Absent: conjunctival injection - ENT ENT exam: Present: mucous membranes moist, normal oropharynx - Neck Neck exam: Present: normal inspection. Absent: tenderness - Respiratory Respiratory exam: Present: CTAB. Absent: accessory muscle use, rales, wheezes - Cardiovascular Cardiovascular exam: Present: RRR. Absent: gallop, systolic murmur - GI/Abdominal GI/Abdominal exam: Present: normal bowel sounds, soft. Absent: tenderness - Extremities Exam Extremities exam: Present: edema (Wound LUE undressed. mild erythema and swelling. Drain in place is C/D/I. ). Absent: tenderness (Nontender left hand. ) - Back Exam Back exam: Present: other (Kyphosis. ) - Neurological Exam Neurological exam: Present: abnormal gait (baseline), alert, oriented X3 - Psychiatric Psychiatric exam: Present: normal affect, normal mood - Skin Skin exam: Present: erythema - Allied Health Notes Allied health notes reviewed: nursing Allied health notes reviewed: nursing
[2017-02-12 09:00] LABS: A/G RATIO 1.1; ALBUMIN 3.8 g/dL (3.5-5.0); ALKALINE PHOSPHATASE 80 U/L (38-126); ALT 32 U/L (9-52); AST 30 U/L (14-36); BILIRUBIN, TOTAL 0.5 mg/dL (0.2-1.3); BLOOD UREA NITROGEN 11 mg/dL (7-17); CALCIUM 9.3 mg/dL (8.4-10.2); CHLORIDE 103 mmol/L (98-107); CREATININE 0.5 mg/dL (0.5-1.0); EST GLOMERULAR FILTRATION RATE > 60 mL/min; GLUCOSE 130 mg/dL (70-100); POTASSIUM 3.6 mmol/L (3.5-5.1); SODIUM 142 mmol/L (137-145); TOTAL PROTEIN 7.4 g/dL (6.3-8.2)
[2017-02-12 09:20] LABS: IRON 35 ug/dL (37-170)
[2017-02-12 09:28] LABS: TOTAL IRON BINDING CAPACITY 361 ug/mL (250-400); TRANSFERRIN 242 mg/dL (206-381); TRANSFERRIN SATURATION 10 % (14-50)
[2017-02-12 09:33] VITALS: O2SAT 92
[2017-02-12] MEDS ORDERED: NORMAL SALINE 100 ML IV ONE (10:43)
[2017-02-12 10:57] VITALS: BP 117/77; PULSE 87; RESP 20; TEMP 98.2
--- NOTE | 2017-02-12 14:09 | PROGRESS NOTE: Orthopedics ---
Orthopedic PN Subjective - Subjective Principal Diagnosis: Infected Cat Bite Post-op Day: 2 Interval history: Hand improved. Pt comfortable. Ortho PN Objective Exam - Latest Vital Signs and I&O Latest Vital Signs/I&O: Vital Signs Temp 36.8 C 02/12/17 10:00 Pulse 87 02/12/17 10:00 Resp 20 02/12/17 10:00 BP 117/77 02/12/17 10:00 Pulse Ox 92 02/12/17 10:00 Intake & Output 02/11/17 02/12/17 02/12/17 17:59 05:59 17:59 Intake Total 440 340 Output Total 500 250 Balance -60 90 Weight 48.5 kg 48.5 kg Intake: IV 200 Right Forearm 200 Oral 440 140 Output: Urine 500 250 Other: Urine Appearance Clear Clear Clear Urine Color Pale Yellow Yellow Stool Size Small Stool Characteristics Formed Brown Voiding Method Toilet Toilet Toilet # Voids 1 # Bowel Movements 1 - Post-Operative Exam Post-op Day: 2 Incision: Present: clean and dry Dressing Status: changed Drainage Amount: none Distal Pulses: +2 Active Motor: intact Sensation: intact - Lab Labs: Laboratory Last Values WBC 6.6 X 10^3uL (3.9-10.7) 02/12/17 08:42 RBC 3.46 X 10^6uL (4.20-6.10) L 02/12/17 08:42 Hgb 10.9 g/dL (12.0-16.0) L 02/12/17 08:42 Hct 31.7 % (36.0-48.0) L 02/12/17 08:42 MCV 91.7 fL (80.0-100.0) 02/12/17 08:42 MCH 31.5 pg (29.0-35.0) 02/12/17 08:42 MCHC 34.3 g/dL (32.0-36.0) 02/12/17 08:42 RDW 13.1 % (11.5-14.5) 02/12/17 08:42 Plt Count 546 X 10^3uL (130-440) H 02/12/17 08:42 MPV 6.9 fL (7.4-10.4) L 02/12/17 08:42 Neutrophils % 68.8 % (54.0-75.0) 02/12/17 08:42 Lymphocytes % 19.8 % (20.0-40.0) L 02/12/17 08:42 Eosinophils % 3.3 % (0.0-6.0) 02/12/17 08:42 Basophils % 1.0 % (0.0-2.0) 02/12/17 08:42 Neutrophils # 4.5 X 10^3uL (2.6-6.7) 02/12/17 08:42 Lymphocytes # 1.3 X 10^3uL (0.8-3.8) 02/12/17 08:42 Monocytes 7.1 % (2.0-10.0) 02/12/17 08:42 Monocytes # 0.5 X 10^3uL (0.2-1.0) 02/12/17 08:42 Eosinophils # 0.2 X 10^3uL (0.0-0.4) 02/12/17 08:42 Basophils # 0.1 X 10^3uL (0.0-0.1) 02/12/17 08:42 ESR 52 MM/HR (0-20) H 02/08/17 18:50 Sodium 142 mmol/L (137-145) 02/12/17 08:42 Potassium 3.6 mmol/L (3.5-5.1) 02/12/17 08:42 Chloride 103 mmol/L (98-107) 02/12/17 08:42 Carbon Dioxide 29 mmol/L (22-30) 02/12/17 08:42 BUN 11 mg/dL (7-17) 02/12/17 08:42 Creatinine 0.5 mg/dL (0.5-1.0) 02/12/17 08:42 GFR Calculation > 60 mL/min 02/12/17 08:42 Glucose 130 mg/dL (70-100) H 02/12/17 08:42 Calcium 9.3 mg/dL (8.4-10.2) 02/12/17 08:42 Iron 35 ug/dL (37-170) L 02/12/17 08:42 TIBC 361 ug/mL (250-400) 02/12/17 08:42 Transferrin 242 mg/dL (206-381) 02/12/17 08:42 Transferrin % Sat 10 % (14-50) L 02/12/17 08:42 Total Bilirubin 0.5 mg/dL (0.2-1.3) 02/12/17 08:42 AST 30 U/L (14-36) 02/12/17 08:42 ALT 32 U/L (9-52) 02/12/17 08:42 Alkaline Phosphatase 80 U/L (38-126) 02/12/17 08:42 C-Reactive Protein 75.0 mg/L (<10.0) H 02/11/17 10:46 Total Protein 7.4 g/dL (6.3-8.2) 02/12/17 08:42 Albumin 3.8 g/dL (3.5-5.0) D 02/12/17 08:42 Albumin/Globulin Ratio 1.1 02/12/17 08:42 - Allied Health Notes Allied health notes reviewed: nursing Assessment and Plan-Ortho - Date of Encounter Date of Encounter: 02/12/17 (1) Cat bite Status: Acute Assessment and plan: Dressing changed. Less swelling and erythema today Stable for d/c home with PO ABX. f/u Sunday. (2) Cellulitis and abscess of hand Status: Acute (1) Cat bite Qualifiers: Encounter type: subsequent encounter Qualified Code(s): W55.01XD - Bitten by cat, subsequent encounter
== END 2017-02-12 09:08 | disposition home or self-care (01) ==
LOC: IN 15:37
PROVIDERS: ADMIT Family Medicine; ATTEND Family Medicine
DX: S61.452A Open bite of left hand, initial encounter (principal); W55.01XA Bitten by cat, initial encounter; L03.114 Cellulitis of left upper limb; E86.0 Dehydration; E64.9 Sequelae of unspecified nutritional deficiency; M15.9 Polyosteoarthritis, unspecified; E78.5 Hyperlipidemia, unspecified; E03.9 Hypothyroidism, unspecified; I10 Essential (primary) hypertension; E87.5 Hyperkalemia; M81.0 Age-related osteoporosis without current pathological fracture; I69.351 Hemiplegia and hemiparesis following cerebral infarction affecting right dominant side; R26.2 Difficulty in walking, not elsewhere classified; Z85.43 Personal history of malignant neoplasm of ovary
CPT/HCPCS: 36415; 80048; 80053; 83540; 84466; 85014; 85018; 85025; 85651; 86140; 87070; 87075; 87077; 96361; 96365; 96366; G0378; G0379; J0295; J2405; J2765; J3480; J7040

== ENCOUNTER 2017-02-18 14:09 | Emergency (ER) | payer OTHER ==
--- NOTE | 2017-02-18 14:54 | ER PHYSICIAN DOCUMENTATION ---
Physician Documentation [facility] Name:Carleen Allen Age:76 yrs Sex:Female :1940 Arrival Date:02/18/2017 Time:14:09 Bed1 Private MD: Bernardo Mnoge Disposition: 02/18/17 14:31 Discharged to Home/Self Care. Impression: Cat Bite, Wound Recheck. - Condition is Good. - Discharge Instructions: WOUND CHECK, Lac F/U (No Infection), BITE Cat - CAT BITE. - Medical Reconciliation form form. - Follow up: Tommy Chapman DO; When: Tomorrow; Reason: Recheck today's complaints, Continuance of care. - Problem is an ongoing problem. - Symptoms are unchanged. HPI: 02/18 14:23 This 76 yrs old Female presents to ER with complaints of Hand Injury - LEFT. sc 14:24 Patient presents to ED for recheck of: cellulitis, puncture wound, s/p debridement sc after cat bite, slt bleeding and swelling worrying patient. The affected area is on the right hand. Previous treatment: on ampicillin, cxs checked and pcn sensitive P multocida. Progress: The patient reports increased. Historical: - Allergies: No known drug Allergies; - Home Meds: 1. Atenolol Oral 2. Synthroid Oral - PMHx: HYPERTENSION; HYPOTHYROIDISM; - PSHx: TONSILLECTOMY; HYSTERECTOMY; - Tetanus: < 10 years. - Ebola Screening: : Patient negative for fever greater than or equal to 101.5 degrees Fahrenheit, and additional compatible Ebola Virus Disease symptoms. Patient denies exposure to infectious person. Patient denies travel to an Ebola-affected area in the 21 days before illness onset. . - Immunization history: Flu Vaccine < 1 year. - Social history: Smoking status: Patient states was never smoker of tobacco. ROS: 14:26 Constitutional: Negative for fever. sc 14:26 Skin: Positive for erythema, swelling. Exam: 14:26 Constitutional: This is a well developed, well nourished patient who is awake, alert, sc and in no acute distress. Head/Face: Normocephalic, atraumatic. Eyes: Pupils equal round and reactive to light, extra-ocular motions intact. Lids and lashes normal. Conjunctiva and sclera are non-icteric and not injected. Cornea within normal limits. Periorbital areas with no swelling, redness, or edema. 14:26 Back: No spinal tenderness. No costovertebral tenderness. Full range of motion. id 14:26 Skin: Wound recheck: slt erythema, small drainage, generally appears well although minimal granulation tissue. Vital Signs: 14:19 BP 114 / 98; Pulse 84; Resp 16; Temp 98.5(O); Pulse Ox 99% on R/A; Weight 47.17 kg (R); arc Height 5 ft. 0 in. (152.40 cm) (R); Pain 5/10; 14:19 Body Mass Index 20.31 (47.17 kg, 152.40 cm) arc MDM: 14:23 Patient medically screened. id 14:29 Differential diagnosis: cellulitis. Data reviewed: vital signs, nurses notes, old id medical records, lab test result(s), and as a result, I will discharge patient. Counseling: I had a detailed discussion with the patient and/or guardian regarding: the historical points, exam findings, and any diagnostic results supporting the discharge/admit diagnosis, lab results, the need for outpatient follow up, for a referral to a specialist, no change in abx today, need daily dressing changes and rec f/u with wound care nurse. Dispensed Medications: No medications were administered Signatures: Tari William, RN RN Bernardo Jordan MD MD id
--- NOTE | 2017-02-18 14:54 | ER NURSING DOCUMENTATION ---
Nurse's Notes [facility] Name:Carleen Allen Age:76 yrs Sex:Female :1940 Arrival Date:02/18/2017 Time:14:09 Bed1 Private MD: Diagnosis:Cat Bite;Wound Recheck Presentation: 02/18 14:12 Acuity: SASHA 4 lc 14:25 Presenting complaint: Patient states: WANTS HER WOUND RECHECKED FROM CAT BITE SURGERY lc DONE LAST WEEK. HAS NOT CHANGED THE DRESSING, BUT IS TAKING AMPICILLIN FOR. Transition of care: Home. 14:25 Method Of Arrival: Private Vehicle lc Triage Assessment: 14:28 General: Appears in no apparent distress, comfortable, Behavior is appropriate for age, lc cooperative. Pain: Pain At worst was 4 out of 10 on a pain scale. Quality of pain is described as aching. Musculoskeletal: Circulation, motion, and sensation intact Capillary refill < 3 seconds Range of motion intact in all extremities. Injury Description: SURGERY WOUND FROM CAT BITE. 14:33 Derm: WOUND NOT HEALING, YELLOW DRAINAGE, SL REDNESS DISTALLY. lc Historical: - Allergies: No known drug Allergies; - Home Meds: 1. Atenolol Oral 2. Synthroid Oral - PMHx: HYPERTENSION; HYPOTHYROIDISM; - PSHx: TONSILLECTOMY; HYSTERECTOMY; - Tetanus: < 10 years. - Ebola Screening: : Patient negative for fever greater than or equal to 101.5 degrees Fahrenheit, and additional compatible Ebola Virus Disease symptoms. Patient denies exposure to infectious person. Patient denies travel to an Ebola-affected area in the 21 days before illness onset. . - Immunization history: Flu Vaccine < 1 year. - Social history: Smoking status: Patient states was never smoker of tobacco. Screenin:32 Infectious Disease Risk None. Abuse screen: Denies threats or abuse. Denies injuries lc from another. Nutritional screening: No deficits noted. Assessment: 14:32 Reassessment: No changes from previously documented assessment. 14:50 Reassessment: Patient states symptoms have improved. Patient appears in no apparent lc distress at this time. STATES HAND FEELS MUCH BETTER AFTER DRESSING CHANGE. Vital Signs: 14:19 BP 114 / 98; Pulse 84; Resp 16; Temp 98.5(O); Pulse Ox 99% on R/A; Weight 47.17 kg (R); arc Height 5 ft. 0 in. (152.40 cm) (R); Pain 5/10; 14:19 Body Mass Index 20.31 (47.17 kg, 152.40 cm) arc ED Course: 14:11 Patient arrived in ED. jt 14:12 Tari William, RN is Primary Nurse. 14:12 Triage completed. 14:23 Bernardo Mcadams MD is Attending Physician. mo 14:30 Tommy Chapman DO is Referral Physician. mo 14:32 Valuables Remains with patient Patient has correct armband on for positive lc identification. Bed in low position. Call light in reach. Adult w/ patient. 14:48 Wound care to Incision located on right hand AND FORARM was cleaned with soap and water, dressed with bacitracin cling, Vaseline gauze, PRANEETH, CSM INTACT AFTER Patient tolerated well. Administered Medications: No medications were administered Outcome: 14:31 Discharge ordered by . mo 14:51 Discharged to home ambulatory, with friend. 14:51 Condition: stable 14:51 Discharge Assessment: Patient awake, alert and oriented x 3. No cognitive and/or functional deficits noted. Patient verbalized understanding of disposition instructions. 14:51 Discharge instructions given to patient, Instructed on discharge instructions, follow up and referral plans. medication usage, wound care, CONTINUING ABX, AND ASKING ABOUT REFERRAL TO WOUND NURSE Demonstrated understanding of instructions, medications. 14:53 Patient left the ED. 05 14:48 Discharge F/U Call: Spoke with: other: Name: ROOMMATE Are you having any pain? no. Did your discharge instructions answer all of your questions? yes Overall Care on a scale of 1-10 with 10 being the best care, you rate our care as: Other comments: HAND IS BETTER AND FOLLOWUP WITH ELEAZAR TOMORROW AND POSSIBLY WOUND RN Signatures: Tari William, FAUSTO RN Bernardo Mcadams MD MD mo Akila Mcadams, Lauren Tony jt
== END 2017-02-18 14:54 | disposition home or self-care (01) ==
LOC: ER 14:09
DX: Z48.00 Encounter for change or removal of nonsurgical wound dressing (principal); S61.452D Open bite of left hand, subsequent encounter; W55.01XD Bitten by cat, subsequent encounter
CPT/HCPCS: 99283

== ENCOUNTER 2017-02-25 14:41 | Emergency (ER) | payer OTHER ==
--- NOTE | 2017-02-25 15:59 | ER NURSING DOCUMENTATION ---
Nurse's Notes [facility] Name:Carleen Allen Age:76 yrs Sex:Female :1940 Arrival Date:02/25/2017 Time:14:41 Bed2 Private MD:Luiza Krishnan Diagnosis:Open Wound of Hand Presentation: 02/25 14:48 Acuity: SASHA 3 tg 15:16 Presenting complaint: Patient states: Cat scratch wound on top of right hand. Has been tg seen in wound care clinic with Mikayla. Pt was going to change own dressing today, and the scab came off. Pt was unsure how to dress the wound, and concerned about the state of the healing. Pt verbalized that she would like home health to do her dressing changes if possible. Dr. Martinez notified. Transition of care: patient was not received from another setting of care. 15:16 Method Of Arrival: Private Vehicle tg Triage Assessment: 15:21 General: Appears in no apparent distress, Behavior is cooperative. Pain: Complains of tg pain in right hand. EENT: Neuro: Level of Consciousness is awake, alert. Cardiovascular: Capillary refill < 3 seconds. Respiratory: Respiratory effort is even, unlabored. Derm: Skin is pink, warm & dry. Musculoskeletal: Circulation, motion, and sensation intact Range of motion intact in all extremities. Injury Description: Large open, healing wound on back of right hand. Skin is pink surrounding wound. Scant pus. Skin is approx the same temp on each hand. Historical: - Allergies: No known drug Allergies; - Home Meds: 1. Atenolol Oral 2. Synthroid Oral - PMHx: HYPERTENSION; HYPOTHYROIDISM; Cat Bite (February 18, 2017); Wound Recheck (February 18, 2017); - PSHx: TONSILLECTOMY; HYSTERECTOMY; - Tetanus: < 10 years. - Ebola Screening: : Patient negative for fever greater than or equal to 101.5 degrees Fahrenheit, and additional compatible Ebola Virus Disease symptoms. Patient denies exposure to infectious person. Patient denies travel to an Ebola-affected area in the 21 days before illness onset. No symptoms or risks identified at this time. . - Immunization history: Flu Vaccine unknown. - Social history: Smoking status: unknown if patient ever smoked tobacco. Screenin:24 Infectious Disease Risk Unable to Obtain. Abuse screen: Denies threats or abuse. Denies tg injuries from another. Nutritional screening: No deficits noted. Vital Signs: 14:48 BP 116 / 71; Pulse 73; Resp 20; Temp 98.8(O); Pulse Ox 93% on R/A; Weight 47.17 kg (R); arc Height 5 ft. 0 in. (152.40 cm) (R); Pain 0/10; 14:48 Body Mass Index 20.31 (47.17 kg, 152.40 cm) arc ED Course: 14:42 Patient arrived in ED. arc 14:42 Luiza Krishnan DO is Private Physician. arc 14:47 Migue Hernandez, RN is Primary Nurse. tg 14:48 Triage completed. tg 15:24 Arm band placed on. tg 15:24 Valuables Remains with patient. tg 15:30 Geronimo Martinez MD is Attending Physician. tl1 15:30 Luiza Krishnan DO is Referral Physician. tl1 Administered Medications: No medications were administered Outcome: 15:31 Discharge ordered by . tl1 15:57 Discharged to home ambulatory. tg 15:57 Condition: improved 15:57 Discharge Assessment: Patient awake and alert. 15:57 Instructed on discharge instructions, follow up and referral plans. wound care. 15:58 Patient left the ED. nf Signatures: Migue Hernandez RN RN Maria Isabel Jewell RN RN Geronimo Martinez MD MD tl1 Akila Mcadams, Reg Reg arc
--- NOTE | 2017-02-27 15:58 | ER PHYSICIAN DOCUMENTATION ---
Physician Documentation [facility] Name:Carleen Allen Age:76 yrs Sex:Female :1940 Arrival Date:02/25/2017 Time:14:41 Bed2 Private MD:Luiza Krishnan ED, Tom Disposition: 02/26 06:17 Chart complete. tl1 Disposition: 02/25/17 15:31 Discharged to Home/Self Care. Impression: Open Wound of Hand. - Condition is Good. - Medical Reconciliation form form. - Follow up: Luiza Krishnan DO; When: 2 - 3 days. - Problem is new. - Symptoms have improved. - Notes: CONTINUE YOUR CURRENT TREATMENT FOR YOUR CHRONIC HAND WOUND. RETURN FOR WORSENING PAIN, REDNESS, SWELLING OR IF WORSE IN ANY WAY. MAKE SURE TO KEEP YOUR WOUND CARE APPOINTMENT THIS WEEK. HPI: 02/25 14:50 This 76 yrs old Female presents to ER via Private Vehicle with complaints of tl1 Wound Check. 14:50 She has a chronic wound on the dorsum or her right hand. Today, the scab fell off while tl1 she was changing the dressing and she is concerned about that. She is worried that there is "pus" at the base of the wound. The mild surrounding redness has not changed. No ascending red streak or fever.. Historical: - Allergies: No known drug Allergies; - Home Meds: 1. Atenolol Oral 2. Synthroid Oral - PMHx: HYPERTENSION; HYPOTHYROIDISM; Cat Bite (February 18, 2017); Wound Recheck (February 18, 2017); - PSHx: TONSILLECTOMY; HYSTERECTOMY; - Tetanus: < 10 years. - Ebola Screening: : Patient negative for fever greater than or equal to 101.5 degrees Fahrenheit, and additional compatible Ebola Virus Disease symptoms. Patient denies exposure to infectious person. Patient denies travel to an Ebola-affected area in the 21 days before illness onset. No symptoms or risks identified at this time. . - Immunization history: Flu Vaccine unknown. - Social history: Smoking status: unknown if patient ever smoked tobacco. ROS: 15:30 Skin: Positive for ulceration. tl1 15:30 All other systems are negative. Exam: 15:30 Constitutional: This is a well developed, well nourished patient who is awake, alert, tl1 and in no acute distress. 15:30 Cardiovascular: Rate: normal. 15:30 Respiratory: Respirations: normal. 15:30 Skin: The dorsum of her right hand has a roughly lens shaped ulcer with somewhat heaped up edges and a clean base with a somewhat dry fibrous base. No purulence, induration, fluctuance. Mild peripheral erythema consistent with normal healing.. Vital Signs: 14:48 BP 116 / 71; Pulse 73; Resp 20; Temp 98.8(O); Pulse Ox 93% on R/A; Weight 47.17 kg (R); arc Height 5 ft. 0 in. (152.40 cm) (R); Pain 0/10; 14:48 Body Mass Index 20.31 (47.17 kg, 152.40 cm) arc MDM: 15:03 Patient medically screened. tl1 15:30 Data reviewed: vital signs, nurses notes, and as a result, I will discharge patient. tl1 Counseling: I had a detailed discussion with the patient and/or guardian regarding: the historical points, exam findings, and any diagnostic results supporting the discharge/admit diagnosis, the need for outpatient follow up, with the patient's primary care provider, to return to the emergency department if symptoms worsen or persist or if there are any questions or concerns that arise at home. Response to treatment: There is no appreciated change of the patient's symptoms at this time. Special discussion: I explained that her wound looks good and that she may continue with the current wound care regimen she has established with her wound care nurse, Mikayla.. Dispensed Medications: No medications were administered Signatures: Migue Hernandez RN RN Maria Isabel Jewell RN RN nf Leigh, Tom, MD MD tl1
== END 2017-02-25 15:58 | disposition home or self-care (01) ==
LOC: ER 14:41
DX: Z51.89 Encounter for other specified aftercare (principal); S61.452D Open bite of left hand, subsequent encounter
CPT/HCPCS: 99281